=== PATIENT | female | born 1985 | race Caucasian/White ===

== ENCOUNTER → 2018-05-21 13:33 | Outpatient (CLI) | payer MEDICAID, SELFPAY ==
[2018-05-21 17:34] LABS: Chlamydia Trachomatis by PCR Negative (Negative); Neisserai gonorrhoeae by PCR Negative (Negative); Probe Check PASS; Sample Adequacy Control PASS; Specimen Processing Control PASS
== END ==
PROVIDERS: Visit Provider Obstetrics & Gynecology
DX: N91.2 Amenorrhea, unspecified (principal); Z11.3 Encounter for screening for infections with a predominantly sexual mode of transmission
CPT/HCPCS: 87491; 87591

== ENCOUNTER → 2018-06-11 14:38 | Outpatient (CLI) | payer MEDICAID, SELFPAY ==
[2018-06-11 16:28] LABS: Thyroid Stim Hormone (TSH) 0.93 uIU/mL (0.358-3.74)
[2018-06-11 16:34] LABS: Absolute Lymphocyte Count 2.33 X10^3/ul (0.83-4.51); Absolute Neutrophil Count 7.2 X10^3/uL (2.0-7.7); Basophil# 0.03 X10^3/uL; Basophil% 0.3 % (0-1); Eosinophil# 0.07 X10^3/uL; Eosinophils% 0.7 % (0-5); Hematocrit 41.5 % (37-47); Hemoglobin 13.7 g/dl (12.0-15.0); Lymphocyte # 2.33 X10^3/ul (4.0); Lymphocyte % 22.4 % (19-41); Mean Corpuscular Hgb 30.3 pg (27.0-32.0); Mean Corpuscular Volume 91.8 fL (81-99); Mean Platelet Vol. 10.2 fl (6.2-12.0); Monocyte# 0.78 X10^3/uL; Monocyte% 7.5 % (0-10); Platelet Count 269 K/mm3 (150-450); RBC Distribution Width CV 12.6 % (11.6-14.6); RBC Distribution Width SD 42.1 fl (35.1-43.9); Red Blood Count 4.52 M/mm3 (4.2-5.4); White Blood Count 10.4 K/mm3 (4.4-11.0)
[2018-06-11 16:51] LABS: POSITIVE COUNT NO; POSITIVE DIFFERENTIAL NO; POSITIVE MORPHOLOGY NO
[2018-06-11 17:09] LABS: Color, Urine Yellow (Yellow); Glucose, Dipstick Normal (Normal); Ketone-Dipstick Negative (Negative); Leukocyte Esterase-Dipstick Negative /ul (Negative); Nitrite-Dipstick Negative (Negative); Occult Blood-Urine Negative /ul (Negative); Protein-Dipstick 15 mg/dl (Negative); Specific Gravity, Urine 1.025 (1.002-1.030); Urine Bilirubin Dipstick Negative (Negative); Urine Clarity Sl. Cloudy (Clear); Urine Urobilinogen Normal (Normal)
[2018-06-11 19:01] LABS: Amphetamine Urine VISTA NEGATIVE (<1000 ng/mL); Barbiturate Urine VISTA NEGATIVE (< 200 ng/mL); Benzodiazepine Urine VISTA NEGATIVE (< 200 ng/mL); Cocaine Urine VISTA NEGATIVE (< 300 ng/mL); Ecstacy Urine VISTA NEGATIVE (< 500 ng/mL); Methadone Urine VISTA NEGATIVE (< 300 ng/mL); PCP Urine VISTA NEGATIVE (< 25 ng/mL); THC Urine VISTA NEGATIVE (< 50 ng/mL); Vista UDS pH Range 6
[2018-06-12 10:58] LABS: HIV - WCH Non-Reactive (Nonreactive); Rubella IgG 238.4 IU/mL
[2018-06-13 17:06] LABS: HEPATITIS B SURFACE AG Negative (Negative); Hep C Antibodies 0.1 s/co ratio (0.0-0.9)
[2018-06-14 04:35] LABS: Prenatal RPR NONREACTIVE (NONREACTIVE)
== END ==
PROVIDERS: Visit Provider Obstetrics & Gynecology
DX: Z34.81 Encounter for supervision of other normal pregnancy, first trimester (principal)
CPT/HCPCS: 36415; 80307; 81002; 84443; 85025; 86703; 86762; 86803; 87340

== ENCOUNTER → 2018-10-29 09:06 | Outpatient (CLI) | payer MEDICAID, SELFPAY ==
[2018-10-29 10:38] LABS: Mean Corp Hgb Conc 33.3 g/gl (32-36); Mean Corpuscular Hgb 31.3 pg (27.0-32.0); Mean Platelet Vol. 9.9 fl (6.2-12.0); Platelet Count 213 K/mm3 (150-450); RBC Distribution Width CV 12.9 % (11.6-14.6); RBC Distribution Width SD 43.2 fl (35.1-43.9); Red Blood Count 3.83 M/mm3 (4.2-5.4); White Blood Count 9.5 K/mm3 (4.4-11.0)
[2018-10-29 10:39] LABS: Scan Indicated on CBC? Y/N NO
[2018-10-29 10:44] LABS: Glucose Challenge Gest 1H 50g 150 mg/dL (70-140)
--- OUTSIDE RECORDS SUMMARY | 2018-12-15 07:39 | XMS RPT_ITS ---
:1985 Author Organization OHIP Care Team Providers Name Role Phone Nikia Cash Attending Unavailable Nikia Cash Attending Unavailable Nikia Cash Referring Unavailable Lan Benitez Primary Care Unavailable Nikia Cash Attending Unavailable Nikia Cash Attending Unavailable PROBLEMS PROBLEMS DATE TYPE CONDITION / CODE ATTENDING STATUS SOURCE 10/29/2018 Unknown Z34.83 - Encounter Nikia Cash Active [facility] other normal Hospital , third Repository trimester / Z34.83(ICD-10) 06/11/2018 Unknown Z34.81 - Encounter Nikia Cash Active [facility] of [facility] other normal Hospital , first Repository trimester / Z34.81(ICD-10) 05/21/2018 Unknown Z11.3 - Encounter Nikia Cash Active [place] for screening for Community infections with a Hospital predominantly Repository sexual mode of transmission / Z11.3(ICD-10) 05/21/2018 Unknown N91.2 - Amenorrhea, Nikia Cash Active [place] unspecified / Community N91.2(ICD-10) Hospital Repository PROCEDURES PROCEDURES No Procedure Records FoundRESULTS RESULTS GESTATIONAL GTT 3HR Collected: 11/04/2018 Status: F Source: CATHERINE 100G 9:57 AM [facility] [place], [place] REPOSITORY Order Comment: Is Patient Fasting? Y TYPE CODE TESTS RESULT OUT OF RANGE REFERENCE UNITS LAB L501.0650 <105 mg/dL Normal GLU 69 GTT-FASTING Result Comment: GLUCOSE TOLERANCE TEST FOR Reference Interval GESTATIONAL DIABETES Fasting <105 mg/dL 1 hour <190 mg/dl 2 hour <165 mg/dl 3 hour <145 mg/dl LAB L501.0660 <190 mg/dL Normal GLU GTT- 1HR 111 LAB L501.0670 <165 mg/dL Normal GLU GTT- 2HR 125 LAB L501.0680 <145 L Normal GLU GTT- 3HR 112 Performed By: #### L500.4710 #### [facility] [address] [facility] [place], [place], [id number] CBC-COMPLETE BLOOD CNT Collected: 10/29/2018 Status: F Source: CATHERINE NO DIFF 9:17 AM [facility] [place], [place] REPOSITORY TYPE CODE TESTS RESULT OUT OF RANGE REFERENCE UNITS LAB L100.1000 4.4-11.0 K/mm3 Normal WBC 9.5 LAB L100.1200 4.2-5.4 M/mm3 Low RBC 3.83 LAB L100.1300 12.0-15.0 g/dl Normal HGB 12.0 LAB L100.1400 37-47 % Low HCT 36.0 LAB L100.1500 81-99 fL Normal MCV 94.0 LAB L100.1600 27.0-32.0 pg Normal MCH 31.3 LAB L100.1700 32-36 g/gl Normal MCHC 33.3 LAB L100.1810 11.6-14.6 % Normal RDW CV 12.9 LAB L100.1820 35.1-43.9 fl Normal RDW SD 43.2 LAB L100.1900 150-450 K/mm3 Normal PLT 213 LAB L100.2000 6.2-12.0 fl Normal MPV 9.9 Performed By: #### L100.0500 #### [facility] [address] [place], [place], [id number] GLUCOSE CHALLENGE GEST Collected: 10/29/2018 Status: F Source: CATHERINE 1H 50G 9:17 AM [facility] [place], [place] REPOSITORY TYPE CODE TESTS RESULT OUT OF RANGE REFERENCE UNITS LAB L501.0250 70-140 mg/dL High GLU GEST 150 50g 1H Performed By: #### L501.0250 #### [facility] [address] [place], [address] URINE DRUG SCREEN Collected: 06/11/2018 Status: F Source: CATHERINE (VISTA) 2:40 PM [facility] [place], [place] REPOSITORY Order Comment: List of Drugs Taken or Suspected? UNK TYPE CODE TESTS RESULT OUT OF RANGE REFERENCE UNITS LAB L505.0075 TO BE Normal CONFIRMED Result Comment: CONFIRMATORY TESTING FOR ALL POSITIVE URINE DRUG SCREEN RESULTS WILL ONLY BE SENT OUT UPON PHYSICIAN ORDER. VISTA Urine Drug Screen methods provide only preliminary analytical test results. A more specific alternate chemical method must be used in order to obtain a confirmed analytical result. Gas chromatography/mass spectrometery (GC/MS) is the preferred confirmatory method. Clinical consideration and professional judgement should be applied to any drug of abuse test result, particularly when preliminary positive results are used. URINE TCA TESTING MUST BE ORDERED SEPARATELY. USE TEST MNEMONIC: [facility] LAB L505.5005 VISTA UDS PH 6 Normal LAB L505.5015 <1000 ng/mL AMPHETAMINES Normal NEGATIVE LAB L505.5025 < 200 ng/mL BARBITIURATES Normal NEGATIVE LAB L505.5035 < 200 ng/mL BENZODIAZIPINE Normal NEGATIVE LAB L505.5045 < 300 ng/mL COCAINE Normal NEGATIVE LAB L505.5055 < 500 ng/mL ECSTACY Normal NEGATIVE LAB L505.5065 < 300 ng/mL METHADONE Normal NEGATIVE LAB L505.5075 < 300 ng/mL OPIATES Normal NEGATIVE LAB L505.5085 < 25 ng/mL PCP Normal NEGATIVE LAB L505.5095 < 50 ng/mL THC Normal NEGATIVE Performed By: #### L505.5000 #### [facility] [address] [place], [place], [id number] THYROID STIM HORMONE Collected: 06/11/2018 Status: F Source: CATHERINE (TSH) 2:40 PM [facility] [place] [place] REPOSITORY TYPE CODE TESTS RESULT OUT OF RANGE REFERENCE UNITS LAB L501.9520 0.358-3.74 uIU/mL Normal TSH 0.93 Performed By: #### L501.9520 #### [facility] [address] [place], [address] CBC W/DIFF, AUTOMATED Collected: 06/11/2018 Status: F Source: CATHERINE 2:40 PM [facility] [place] [place] REPOSITORY TYPE CODE TESTS RESULT OUT OF RANGE REFERENCE UNITS LAB L100.1000 4.4-11.0 K/mm3 Normal WBC 10.4 LAB L100.1200 4.2-5.4 M/mm3 Normal RBC 4.52 LAB L100.1300 12.0-15.0 g/dl Normal HGB 13.7 LAB L100.1400 37-47 % Normal HCT 41.5 LAB L100.1500 81-99 fL Normal MCV 91.8 LAB L100.1600 27.0-32.0 pg Normal MCH 30.3 LAB L100.1700 32-36 g/gl Normal MCHC 33.0 LAB L100.1810 11.6-14.6 % Normal RDW CV 12.6 LAB L100.1820 35.1-43.9 fl Normal RDW SD 42.1 LAB L100.1900 150-450 K/mm3 Normal PLT 269 LAB L100.2000 6.2-12.0 fl Normal MPV 10.2 LAB L100.2100 47-70 % Normal NEUT% 69.0 LAB L100.2200 19-41 % Normal LY% 22.4 LAB L100.2300 0-10 % Normal MONO% 7.5 LAB L100.2400 0-5 % Normal EO% 0.7 LAB L100.2500 0-1 % Normal BASO% 0.3 LAB L100.2550 0.0-0.9 % Normal IM GRAN % 0.100 Result Comment: IG% - Immature Granulocytes (promyelocytes, myelocytes and metamyelocytes) > 1% indicates that a LEFT SHIFT is Present. LAB L100.2620 2.0-7.7 X10 3/uL Normal Absolute Neut 7.2 LAB L100.2720 0.83-4.51 X10 3/ul Normal Absolute Lymph 2.33 Performed By: #### L100.0100 #### [facility] [address] [place], [place], [address] URINALYSIS, ROUTINE Collected: 06/11/2018 Status: F Source: CATHERINE (DIPSTICK) 2:40 PM [facility] [place], [place] REPOSITORY Order Comment: How was Urine Obtained? Urine, Random TYPE CODE TESTS RESULT OUT OF RANGE REFERENCE UNITS LAB L400.3000 Yellow COLOR Normal Yellow LAB L400.3050 Clear Normal CLARITY Sl. Cloudy LAB L400.3200 Normal mg/dl Normal GLUCOSE, UR Normal LAB L400.3300 Negative mg/dL Normal BILIRUBIN URINE Negative LAB L400.3400 Negative mg/dl Normal KETONE UR Negative LAB L400.3465 1.002-1.030 Normal SP.GR. DIPSTX 1.025 LAB L400.3550 5.0 - 8.0 pH UR Normal 6.0 LAB L400.3600 Negative mg/dl High PROT 15 DIPSTX LAB L400.3700 Normal mg/dl Normal UROBILI Normal LAB L400.3750 Negative Normal NITRITE UR Negative LAB L400.3780 Negative /ul Normal OCCULT BLOOD-UR Negative LAB L400.3800 Negative /ul LEUK Normal ESTERASE Negative Performed By: #### L400.2010 #### [facility] [address] [place], [place], [address] T AND S-NO Collected: 06/11/2018 Status: F Source: CATHERINE CHARGE W/PNP 2:40 PM [facility] [place] [place] REPOSITORY Order Comment: Reason for Type AND Screen/Red Cells: Surgery? N TYPE CODE TESTS RESULT OUT OF RANGE REFERENCE UNITS LAB B10.0800 O Normal BLOOD POSITIVE TYPE GEL LAB B100.4050 Normal Ab SCREEN NEGATIVE GEL Performed By: #### B100.7550 #### [facility] [address] [facility]. [place], [place], [address] RUBELLA IGG Collected: 06/11/2018 Status: F Source: [place] 2:40 PM [facility] [place] [place] REPOSITORY TYPE CODE TESTS RESULT OUT OF RANGE REFERENCE UNITS LAB L509.4000 IU/mL Normal Rubella IgG 238.4 Result Comment: Antibody results Interpretation of Immune Status < 5 IU/ml Presumed Non-immune 5 - < 10 IU/ml Equivocal > or = 10 IU/ml Presumed Immune Performed By: #### L509.4000, L3890.6005 #### [facility] [address] [facility] [place], [address] HIV - W[facility] Collected: 06/11/2018 Status: F Source: CATHERINE 2:40 PM [facility] [place] [place] REPOSITORY TYPE CODE TESTS RESULT OUT OF RANGE REFERENCE UNITS LAB L3890.6005 Nonreactive Normal HIV - [facility] Non-Reactive Performed By: #### L509.4000, L3890.6005 #### [facility] [address] [place], [place], [id number] HEPATITIS B SURFACE Collected: 06/11/2018 Status: F Source: CATHERINE AG 2:40 PM [facility] [place] [place] REPOSITORY TYPE CODE TESTS RESULT OUT OF RANGE REFERENCE UNITS LAB L3100.0400 Negative Normal HB Negative SURF AG Result Comment: Performed at: [facility] Lab[address] [id number] Surgeon Assistant: Damien Pinon PhD, Phone: [phone] Performed By: #### L3100.0390, L3100.0625 #### [facility] (refer to report for specific site) refer to report for address and phone number HEPATITIS C ANTIBODIES Collected: 06/11/2018 Status: F Source: CATHERINE 2:40 PM [facility] [place] [place] REPOSITORY TYPE CODE TESTS RESULT OUT OF RANGE REFERENCE UNITS LAB L3100.0650 0.0-0.9 s/co ratio Normal HEP C AB 0.1 Result Comment: Negative: < 0.8 Indeterminate: 0.8 - 0.9 Positive: > 0.9 The CDC recommends that a positive HCV antibody result be followed up with a HCV Nucleic Acid Amplification test (153099). Performed By: #### L3100.0390, L3100.0625 #### [facility] (refer to report for specific site) refer to report for address and phone number RPR Collected: 06/11/2018 Status: F Source: CATHERINE 2:40 PM [facility] [place] [place] REPOSITORY TYPE CODE TESTS RESULT OUT OF REFERENCE UNITS RANGE LAB L700.5100 NONREACTIVE Normal RPR NONREACTIVE Performed By: #### L700.5100 #### [facility] [address] [place], [place], [address] CT/NG [facility] BY PCR Collected: 05/21/2018 Status: F Source: CATHERINE 10:00 AM [facility] [place] [place] REPOSITORY TYPE CODE TESTS RESULT OUT OF RANGE REFERENCE UNITS LAB L8200.2100 Negative Normal Chlam Negative Trac PCR LAB L8200.2200 Negative Normal NG by Negative PCR Performed By: #### L8200.2000 #### [facility] [address] [place], [address] ALLERGIES ALLERGIES DATE TYPE / CODE NAME / CODE REACTION SEVERITY SOURCE 12/01/2017 Drug codeine/F006 Vomiting Unknown [facility] Allergy/4160 433869(RXNOR Hospital 91664(SNOMED M) Repository CT) 12/01/2017 Drug hydrocodone/ Vomiting Unknown [facility] Allergy/4160 [id number](R Hospital 79200(SNOMED XNORM) Repository CT) 12/01/2017 Drug acetaminophe Vomiting Unknown [facility] Allergy/4160 n/[id number] Hospital 27978(SNOMED (RXNORM) Repository CT) ENCOUNTERS ENCOUNTERS ADMIT/DISCHARGE ACCOUNT ADMITTING ENCOUNTER LOCATION SOURCE NUMBER CLASS 11/04/2018 [id number] Ambulatory [facility] ing:LAB Repository 10/29/2018 [id number] Amb[place] [facility] ing:WOBLAB Repository 06/11/2018 [id number] Ambulatory [facility] [place] 8 [facility] ing:WOBLAB Repository 05/21/2018 [id number] Ambulatory [place] [facility] 1 [facility] ing:LABSPEC Repository PAYERS PAYERS ENCOUNTER GUARANTOR PAYER SUBSCRIBER SOURCE 11/04/2018 SAYRA Stauffer Primary FAM [place] [id number] [facility] BURNETTMANDOB: Replaced by [facility] Number: [id number] [id number] Repository [address]Aua: [phone]) Date:2018-10-29P O [phone] () [address]ATTN: [place] [address]BS: 11/04/2018 Secondary NOT GIVENUNK [facility] Insurance:SELF PAY [facility] Number: Effective Repository Date:2018-10-29 10/29/2018 Sayra Stauffer Primary FAMFIDELIA [id number] Insurance:CARESOURCEP KABIBIMANDOB: Replaced by [facility] Number: [id number] [id number] Repository [address]Qel: ([phone]) Date:2018-10-29P O [phone] (HP) [address]ATTN: [place] [address]KK: 10/29/2018 Secondary NOT GIVENUNK [place] Insurance:SELF PAY [facility] Number: Effective Repository Date:2018-10-29 06/11/2018 Sayra Stauffer Primary FAM [id number] Insurance:CARESOURCEP ZACHARYMANDOB: Replaced by [facility] Number: [id number] [place] [id number] Repository [address]Pbd: [phone]) Date:2018-06-11P O [phone] (HP) [address]ATTN: [place] [address]CK: 06/11/2018 Secondary NOT GIVENUNK [place] Insurance:SELF PAY [facility] Number: Effective Repository Date:2018-06-11 05/21/2018 Sayra Stauffer Primary FAM [id number] Insurance:CARESOURCEP ZACHARYMANDOB: Replaced by [facility] Number: [id number] [place], [place] [id number] Repository [address]Ubr: [phone] Date:2018-05-21P O [phone] (HP) [address]ATTN: [place] [address]KI: 05/21/2018 Secondary NOT GIVENUNK [place] Insurance:SELF PAY [facility] Number: Effective Repository Date:2018-05-21
== END ==
PROVIDERS: Visit Provider Obstetrics & Gynecology
DX: Z34.83 Encounter for supervision of other normal pregnancy, third trimester (principal)
CPT/HCPCS: 36415; 82950; 85027

== ENCOUNTER → 2018-11-04 09:38 | Outpatient (CLI) | payer MEDICAID, SELFPAY ==
[2017-12-01 10:25] VITALS: BMI 38.2
[2018-11-04 10:45] LABS: Glucose GTT-Gestation. Fasting 69 mg/dL (<105)
[2018-11-04 12:00] LABS: Glucose GTT-Gestational 1 Hr 111 mg/dL (<190)
[2018-11-04 12:45] LABS: Glucose GTT-Gestational 2 Hr 125 mg/dL (<165)
[2018-11-04 13:42] LABS: Glucose GTT-Gestational 3 Hr 112 L (<145)
--- OUTSIDE RECORDS SUMMARY | 2019-02-05 22:01 | XMS RPT_ITS ---
[...] Unknown Z11.3 - Encounter Nikia Cash [facility] for screening for Community infections with a Hospital predominantly Repository sexual mode of transmission / Z11.3(ICD-10) 05/21/2018 Unknown N91.2 - Amenorrhea, Nikia Cash [facility] unspecified / Community N91.2(ICD-10) Hospital Repository PROCEDURES PROCEDURES No Procedure Records FoundRESULTS RESULTS GESTATIONAL GTT 3HR Collected: 11/04/2018 Status: F Source: [place] 100G 9:57 AM [facility] [place] Order Comment: Is Patient Fasting? Y [...] 3HR 112 Performed By: #### L500.4710 #### [facility] [address] [facility] [place], [place], [id number] CBC-COMPLETE BLOOD CNT Collected: 10/29/2018 Status: F Source: CATHER[facility] NO DIFF 9:17 AM [facility] [facility] [place] TYPE CODE TESTS RESULT OUT OF [...] MPV 9.9 Performed By: #### L100.0500 #### [facility] [address] [place], [place], [id number] GLUCOSE CHALLENGE GEST Collected: 10/29/2018 Status: F Source: CATHERINE 1H 50G 9:17 AM [facility] [facility] [place] TYPE CODE TESTS RESULT OUT OF RANGE REFERENCE UNITS LAB L501.0250 70-140 mg/dL High GLU GEST 150 50g 1H Performed By: #### L501.0250 #### [facility] [address] [place], [address] URINE DRUG SCREEN Collected: 06/11/2018 Status: F Source: CATHERINE (VISTA) 2:40 PM [facility] [place] [place] Order Comment: List of Drugs Taken [...] Normal NEGATIVE Performed By: #### L505.5000 #### [facility] [address] [place], [place], [id number] THYROID STIM HORMONE Collected: 06/11/2018 Status: F Source: CATHERINE (TSH) 2:40 PM [facility] [place] TYPE CODE TESTS RESULT OUT OF RANGE REFERENCE UNITS LAB L501.9520 0.358-3.74 uIU/mL Normal TSH 0.93 Performed By: #### L501.9520 #### [facility] [address] [place], [address] CBC W/DIFF, AUTOMATED Collected: 06/11/2018 Status: F Source: CATHERINE 2:40 PM [facility] [place] TYPE CODE TESTS RESULT OUT OF [...] Lymph 2.33 Performed By: #### L100.0100 #### [facility] [address] [place], [place], [address] URINALYSIS, ROUTINE Collected: 06/11/2018 Status: F Source: CATHERINE (DIPSTICK) 2:40 PM [facility] [place] [place] Order Comment: How was Urine Obtained? [...] ESTERASE Negative Performed By: #### L400.2010 #### [facility] [address] [place], [place], [address] T AND S-NO Collected: 06/11/2018 Status: F Source: CATHERINE CHARGE W/PNP 2:40 PM [facility] [place] Order Comment: Reason for Type AND Screen/Red Cells: Surgery? N TYPE CODE TESTS RESULT OUT OF RANGE REFERENCE UNITS LAB B10.0800 O Normal BLOOD POSITIVE TYPE GEL LAB B100.4050 Normal Ab SCREEN NEGATIVE GEL Performed By: #### B100.7550 #### [facility] [address] [facility] [place], [place], [address] RUBELLA IGG Collected: 06/11/2018 Status: F Source: GATE 2:40 PM [facility] [place] TYPE CODE TESTS RESULT OUT OF RANGE REFERENCE UNITS LAB L509.4000 IU/mL Normal Rubella IgG 238.4 Result Comment: Antibody results Interpretation of Immune Status < 5 IU/ml Presumed Non-immune 5 - < 10 IU/ml Equivocal > or = 10 IU/ml Presumed Immune Performed By: #### L509.4000, L3890.6005 #### [facility] [address] [place], [address] HIV - [facility] Collected: 06/11/2018 Status: F Source: CATHERINE 2:40 PM [facility] [place] TYPE CODE TESTS RESULT OUT OF RANGE REFERENCE UNITS LAB L3890.6005 Nonreactive Normal HIV - [facility] Non-Reactive Performed By: #### L509.4000, L3890.6005 #### [facility] [address] [place], [place], [address] HEPATITIS B SURFACE Collected: 06/11/2018 Status: F Source: CATHERINE AG 2:40 PM [facility] [place] TYPE CODE TESTS RESULT OUT OF RANGE REFERENCE UNITS LAB L3100.0400 Negative Normal HB Negative SURF AG Result Comment: Performed at: [facility] [id number] [place] Table Assembler: Damien Pinon PhD, Phone: [phone] Performed By: #### L3100.0390, L3100.0625 #### [facility] (refer to report for specific site) refer to report for address and phone number HEPATITIS C ANTIBODIES Collected: 06/11/2018 Status: F Source: CATHERINE 2:40 PM [facility] [place] TYPE CODE TESTS RESULT OUT OF RANGE REFERENCE UNITS LAB L3100.0650 0.0-0.9 s/co ratio Normal HEP C AB 0.1 Result Comment: Negative: < 0.8 Indeterminate: 0.8 - 0.9 Positive: > 0.9 The CDC recommends that a positive HCV antibody result be followed up with a HCV Nucleic Acid Amplification test (627212). Performed By: #### L3100.0390, L3100.0625 #### [facility] (refer to report for specific site) refer to report for address and phone number RPR Collected: 06/11/2018 Status: F Source: CATHERINE 2:40 PM [facility] [place] TYPE CODE TESTS RESULT OUT OF REFERENCE UNITS RANGE LAB L700.5100 NONREACTIVE Normal RPR NONREACTIVE Performed By: #### L700.5100 #### [facility] [address] [place], [place], [address] CT/NG [facility] BY PCR Collected: 05/21/2018 Status: F Source: CATHERINE 10:00 AM [facility] [place] TYPE CODE TESTS RESULT OUT OF RANGE REFERENCE UNITS LAB L8200.2100 Negative Normal Chlam Negative Trac PCR LAB L8200.2200 Negative Normal NG by Negative PCR Performed By: #### L8200.2000 #### [facility] [address] [place], [address] ALLERGIES ALLERGIES DATE TYPE / CODE NAME / CODE REACTION SEVERITY SOURCE 12/01/2017 Drug codeine/F006 Vomiting Unknown [facility] Allergy/4160 299858(RXNOR Hospital 70082(SNOMED M) Repository CT) 12/01/2017 Drug hydrocodone/ Vomiting Unknown [facility] Allergy/4160 [id number](R Hospital 00123(SNOMED XNORM) Repository CT) 12/01/2017 Drug acetaminophe Vomiting Unknown [facility] Allergy/4160 n/[id number] Hospital 31418(SNOMED (RXNORM) Repository CT) ENCOUNTERS ENCOUNTERS ADMIT/DISCHARGE ACCOUNT ADMITTING ENCOUNTER LOCATION SOURCE NUMBER CLASS 11/04/2018 [id number] Ambulatory Catherine Catherine 5 [facility] ing:LAB Repository 10/29/2018 [id number] Ambulatory [facility] 8 [facility] ing:WOBLAB Repository 06/11/2018 [id number] Ambulatory [facility] 8 [facility] ing:WOBLAB Repository 05/21/2018 [id number] Ambulatory [facility] 1 [facility] ing:LABSPEC Repository PAYERS PAYERS ENCOUNTER GUARANTOR PAYER SUBSCRIBER SOURCE 11/04/2018 SAYRA Stauffer Primary FAM Oterooster [id number] Insurance:SLADESSM REHABMICHAEL BURNETTMANDOB: [facility] Number: [id number] [id number] Repository [address]Fkm: [phone]) Date:2018-10-29P O [phone] () [address]ATTN: [place] [address]GQ: 11/04/2018 Secondary NOT GIVENUNK Catherine Insurance:SELF PAY [facility] [place] Number: Effective Repository Date:2018-10-29 10/29/2018 Sayra Stauffer Primary FAMFIDELIA [id number] Insurance:CARESOURCEP KABIBIMANDOB: [facility] Number: [id number], [place] [id number] Repository [address]Zek: ([phone]) Date:2018-10-29P O [phone] (HP) [address]ATTN: [place] [phone]: 10/29/2018 Secondary NOT GIVENUNK [facility] Insurance:SELF PAY [facility] [place] Number: Effective Repository Date:2018-10-29 06/11/2018 Sayra Stauffer Primary FAM [id number] Insurance:CARESOURCEP ZACHARYMANDOB: [facility] Number: [id number], [place] [id number] Repository [address]Lac: [phone]) Date:2018-06-11P O [phone] (HP) [address]ATTN: [place] [address]XA: 06/11/2018 Secondary NOT GIVENUNK [facility] Insurance:SELF PAY [facility] [place] Number: Effective Repository Date:2018-06-11 05/21/2018 Sayra Stauffer Primary FAM [id number] Insurance:CARESOURCEP ZACHARYMANDOB: [facility] Number: [id number], [place] [id number] Repository [address]Wpl: [phone]) Date:2018-05-21P O [phone] (HP) [address]ATTN: [place] [address]LN: 05/21/2018 Secondary NOT GIVENUNK [facility] Insurance:SELF PAY [facility] [place] Number: Effective Repository Date:2018-05-21
== END ==
PROVIDERS: Family Provider Family Medicine; PCP Family Medicine; Referring Provider Obstetrics & Gynecology; Visit Provider Obstetrics & Gynecology
DX: O24.912 Unspecified diabetes mellitus in pregnancy, second trimester (principal); Z3A.00 Weeks of gestation of pregnancy not specified
CPT/HCPCS: 36415; 82951; 82952

== ENCOUNTER → 2018-12-31 10:37 | Outpatient (CLI) | payer MEDICAID, SELFPAY ==
[2017-12-01 10:25] VITALS: BMI 38.2
[2018-12-31 12:04] LABS: Hematocrit 35.1 % (37-47); Hemoglobin 11.5 g/dl (12.0-15.0); Mean Corp Hgb Conc 32.8 g/gl (32-36); Mean Corpuscular Hgb 30.7 pg (27.0-32.0); Mean Corpuscular Volume 93.6 fL (81-99); Mean Platelet Vol. 9.9 fl (6.2-12.0); Platelet Count 201 K/mm3 (150-450); RBC Distribution Width CV 13.5 % (11.6-14.6); RBC Distribution Width SD 44.9 fl (35.1-43.9); Red Blood Count 3.75 M/mm3 (4.2-5.4); Scan Indicated on CBC? Y/N NO; White Blood Count 8.8 K/mm3 (4.4-11.0)
[2018-12-31 12:21] LABS: ALB/GLOB Ratio 0.6 RATIO (0.9-2.4); AST(SGOT) 8 U/L (15-37); Alanine Aminotransfer ALT/SGPT 12 U/L (13-56); Albumin, Serum 2.7 g/dL (3.2-5.0); Alkaline Phosphatase 100 U/L (45-117); Anion Gap 9 (5-15); BUN 5 mg/dL (7-18); BUN/Creat Ratio 9.3 RATIO (10-20); Calcium,Total 8.1 mg/dL (8.5-10.1); Chloride 109 mmol/L (98-107); Creatinine, Serum 0.54 mg/dL (0.55-1.02); EST Glomerular Filtration Rate 139 mL/min (>60); Est Glom Filt Rate - Afr Amer 168 mL/min (>60); Globulin 4.3 g/dL (2.2-4.2); Glucose 128 mg/dL (74-106); Potassium 3.3 mmol/L (3.5-5.1); Sodium Level 139 mmol/L (136-145); Uric Acid 5.4 mg/dL (2.6-6.0)
== END ==
PROVIDERS: Visit Provider Obstetrics & Gynecology
DX: O13.3 Gestational [pregnancy-induced] hypertension without significant proteinuria, third trimester (principal); Z3A.00 Weeks of gestation of pregnancy not specified
CPT/HCPCS: 36415; 80053; 82570; 84156; 84550; 85027

== ENCOUNTER 2019-01-13 04:46 | Inpatient (IN) | payer MEDICAID, SELFPAY ==
[2019-01-13] VITALS (23 sets, daily range): BP systolic 110–128; BP diastolic 59–80; PULSE 71–88; RESP 14–18; TEMP 36.3–36.7; O2SAT 96–100; BMI 43.0
[2019-01-13] MEDS: Lactated Ringers 1,000 ML 999 ML IV (05:40)
[2019-01-13 06:07] LABS: Absolute Lymphocyte Count 1.86 X10^3/ul (0.83-4.51); Basophil# 0.03 X10^3/uL; Basophil% 0.4 % (0-1); Eosinophil# 0.08 X10^3/uL; Eosinophils% 0.9 % (0-5); Hematocrit 34.2 % (37-47); Hemoglobin 11.5 g/dl (12.0-15.0); Lymphocyte # 1.86 X10^3/ul (4.0); Lymphocyte % 21.8 % (19-41); Mean Corp Hgb Conc 33.6 g/gl (32-36); Mean Corpuscular Hgb 31.7 pg (27.0-32.0); Mean Corpuscular Volume 94.2 fL (81-99); Mean Platelet Vol. 9.8 fl (6.2-12.0); Monocyte# 0.57 X10^3/uL; Monocyte% 6.7 % (0-10); Neutrophil # 5.97 X10^3/uL (2.7-7.7); Platelet Count 188 K/mm3 (150-450); RBC Distribution Width CV 13.6 % (11.6-14.6); RBC Distribution Width SD 44.6 fl (35.1-43.9); Red Blood Count 3.63 M/mm3 (4.2-5.4); White Blood Count 8.5 K/mm3 (4.4-11.0)
[2019-01-13 06:13] LABS: POSITIVE COUNT NO; POSITIVE DIFFERENTIAL NO; POSITIVE MORPHOLOGY NO
[2019-01-13 06:33] LABS: International Normalized Ratio 1.1; Prothrombin Time (Protime)PT. 13.6 SECONDS (11.7-14.9)
[2019-01-13 06:52] LABS: Partial Thromboplast Time 30.8 Seconds (24.1-36.2)
[2019-01-13] MEDS: Lactated Ringers 1,000 ML 150 ML IV (07:01)
[2019-01-13] MEDS: Sodium Citrate/Citric Acid 30 ML UDC PO (07:02)
--- NOTE | 2019-01-13 07:22 | PCM.DCCSEC ---
Discharge Diet: No Restrictions Discharge Activity: May not drive while taking narcotic pain medications., May Shower, May Take a Tub Bath May resume sexual activity in: 4-6 weeks Lifting Restrictions: 20 pounds Additional Activity Instructions:: Nothing in the vagina for 4-6 weeks. You may return to work/school in 6 weeks. Additional Instructions: If you experience any of the following, contact your healthcare provider. Bleeding that soaks a pad every hour for 2 hours Fever 100.4 or higher Unrelieved incision or abdominal pain Swelling, redness, discharge or bleeding from your incision Problems urinating (including inability to urinate or burning while urinating). Visual changes Severe headache Flu-like symptoms Pain or redness in one of both of your breasts Pain, warmth, tenderness or swelling in your legs, especially the calf area Frequent nausea and vomiting Symptoms of depression or anxiety If you experience any of the following, call 911 or go to the nearest Emergency Room. Chest pain Problems breathing Seizure activity Partial or complete paralysis of a body part, slurred speech, weakness or drooping of the face, or a sudden inability to walk or hold your balance Allergies/Adverse Reactions: Allergies codeine Adverse Reaction (Verified 12/01/17 10:27) Vomiting hydrocodone [From Vicodin] Adverse Reaction (Verified 12/01/17 10:27) Vomiting Medications to take at Discharge Docusate Sodium [Colace] 100 mg PO BID #30 capsule 01/13/19 Naproxen [Naprosyn] 250 - 500 mg PO TID PRN PRN #30 tablet 01/13/19 Oxycodone [Oxyir] 5 mg PO Q6H PRN PRN 7 Days #20 tablet 01/13/19 Polyethylene Glycol 3350 [Miralax] 17 gm PO DAILY PRN #14 packet 01/13/19 Vits [Prenatabs FA ] 1 tab PO DAILY 01/13/19 The following prescriptions were given: Oxycodone [Oxyir] 5 mg PO Q6H PRN PRN 7 Days #20 tablet PRN Reason: Mod-Severe Pain (4-08/28) Naproxen [Naprosyn] 250 - 500 mg PO TID PRN PRN #30 tablet PRN Reason: Mild-Mod Pain (1-03/28) Polyethylene Glycol 3350 [Miralax] 17 gm PO DAILY PRN #14 packet PRN Reason: Constipation Docusate Sodium [Colace] 100 mg PO BID #30 capsule Follow-Up: Call to make an appointment with your doctor for an incision check in 1-2 weeks. You will also need a 6 week post- follow up appointment. Test results from this visit will be discussed in further detail at your follow-up appointment, if applicable. Please Follow Up With: Nikia Cash MD - [phone] When: Call to make an appointment for an incision check in 2 weeks. Primary Care Physician: Lan Benitez DO [Primary Care Provider] -
--- NOTE | 2019-01-13 07:26 | DCINST_ITS ---
Discharge Diet: No Restrictions Discharge Activity: May not drive while taking narcotic pain medications., May Shower, May Take a Tub Bath May resume sexual activity in: 4-6 weeks Lifting Restrictions: 20 pounds Additional Activity Instructions:: Nothing in the vagina for 4-6 weeks. You may return to work/school in 6 weeks. Additional Instructions: If you experience any of the following, contact your healthcare provider. * Bleeding that soaks a pad every hour for 2 hours * Fever 100.4 or higher * Unrelieved incision or abdominal pain * Swelling, redness, discharge or bleeding from your incision * Problems urinating (including inability to urinate or burning while urinating). * Visual changes * Severe headache * Flu-like symptoms * Pain or redness in one of both of your breasts * Pain, warmth, tenderness or swelling in your legs, especially the calf area * Frequent nausea and vomiting * Symptoms of depression or anxiety If you experience any of the following, call 911 or go to the nearest Emergency Room. * Chest pain * Problems breathing * Seizure activity * Partial or complete paralysis of a body part, slurred speech, weakness or drooping of the face, or a sudden inability to walk or hold your balance Allergies/Adverse Reactions: Allergies codeine Adverse Reaction (Verified 12/01/17 10:27) Vomiting hydrocodone [From Vicodin] Adverse Reaction (Verified 12/01/17 10:27) Vomiting Medications to take at Discharge Docusate Sodium [Colace] 100 mg PO BID #30 capsule 01/13/19 Naproxen [Naprosyn] 250 - 500 mg PO TID PRN PRN #30 tablet 01/13/19 Oxycodone [Oxyir] 5 mg PO Q6H PRN PRN 7 Days #20 tablet 01/13/19 Polyethylene Glycol 3350 [Miralax] 17 gm PO DAILY PRN #14 packet 01/13/19 Vits [Prenatabs FA ] 1 tab PO DAILY 01/13/19 The following prescriptions were given: Oxycodone [Oxyir] 5 mg PO Q6H PRN PRN 7 Days #20 tablet PRN Reason: Mod-Severe Pain (4-1010) Naproxen [Naprosyn] 250 - 500 mg PO TID PRN PRN #30 tablet PRN Reason: Mild-Mod Pain (1-510) Polyethylene Glycol 3350 [Miralax] 17 gm PO DAILY PRN #14 packet PRN Reason: Constipation Docusate Sodium [Colace] 100 mg PO BID #30 capsule Follow-Up: Call to make an appointment with your doctor for an incision check in 1-2 weeks. You will also need a 6 week post- follow up appointment. Test results from this visit will be discussed in further detail at your follow- up appointment, if applicable. Please Follow Up With: Nikia Cash MD - [phone] When: Call to make an appointment for an incision check in 2 weeks. Primary Care Physician: Lan Benitez DO [Primary Care Provider] -
[2019-01-13] MEDS: Ondansetron 4 MG/2 ML Vial IV (07:36)
[2019-01-13] MEDS: Oxytocin 30 units/NS 500 ml 30 UNITS/500 ML IV.SOLN 167 UNITS IV (07:44)
--- NOTE | 2019-01-13 08:00 | FALS_PTH ---
PATIENT: FAM BIRD LOC: [facility] U#:[id number] AGE/SX: 33/F ROOM: WP006 RE01/13/[address]: Dr. Nikia Cash MD : 1985 BED: 1 DIS: 01/16/2019 SPEC #: [id number] RECD: 01/13/19 08:57 STATUS: KRYSTINA MEG #: [id number] THEO: 01/13/19 08:[address]: Nikia Cash DEPT: SURGICAL PATHOLOGY RECD BY: Indra Foster ENTERED: 01/13/19 14:43 SP TYPE: FALL TUBES OTHR DR: Dr. Lan Benitez, Tissues: Fallopian tube Procedures: Surgery Specimen Level II HEADER OPERATION: Tubal ligation PRE-OP DIAGNOSIS: Desired sterilization TISSUE SUBMITTED: Fallopian tubes MICROSCOPIC DIAGNOSIS Bilateral fallopian tubes, tubal ligation: Completely transected segments of bilateral fallopian tubes, no pathologic diagnosis. SJ:lesli 01/14/19 MICROSCOPIC DESCRIPTION Slides are reviewed. GROSS DESCRIPTION Received is one container labeled with the patient's name and designated bilateral fallopian tubes, stitch left fallopian. The specimen consists of two tubular pieces of pink soft tissue with the left tube identified with a suture and inked black. The left tube measures 0.6 cm in length and 0.5 cm in diameter. The right tube measures 0.5 cm in length and 0.5 cm in diameter. The entire specimen is submitted in one cassette. / TUTU:lesli 01/13/19 TC:4 CPT: 47023 x2
[2019-01-13] MEDS: Ketorolac 30 MG/ML Syringe IV ×3 (08:19→19:52)
--- NOTE | 2019-01-13 08:30 | PCM.OPRPT ---
Delivery Classification: Scheduled Final KELVIN: 01/19/19 Gestational age: 39 Weeks and 1 Days Indications: 39 1/7 wk prior C section deliveries, planned repeat C section and bilateral partial salpingectomy Indications for : Repeat Elective Description of Procedure: SURGEON: Nikia Cash MD ANESTHESIA: Myriam Dubois CRNA Spinal INTERNAL AUDITOR: REX Ledesma EBL : 800 cc Complications: None. Drain: downs, clear yellow urine Fluids replacement LR. Findings: Llamas viable male VTX Clear fluid, CAN x one. Normal ovaries. Fallopian tubes scarring noted along entire tube bilaterally, with close approximation to ovaries. B tubal segments removed AND Filshie clip applied to proximal portions of fallopian tube bilaterally. Minimal pelvic and intraabdominal adhesions otherwise, with filmy adhesions between bladder and lower uterine segment. PATH: Routine cord blood for typing collected. Routine cord gases were sent. Narrative account: After the risks, benefits and alternatives of the procedure were reviewed with the patient, informed consent was obtained. The patient was taken to the Operating room with an IV running, and placed in a seated position on the operating table for placement of the spinal. Once the spinal had been administered, she was briefly frog-legged for Downs catheter placement, and then repositioned to dorsal supine position with leftward displacement of the uterus, and prepped and draped in the usual sterile fashion WITH A CLEAR DRAPE instead of the Betadine impregnated drape. Once the spinal was deemed adequate, a Pfannenstiel skin incision was created using the knife (through the prior skin incision scar). The incision was carried down to the rectus fascia using the knife. The fascia was nicked in the midline. The fascial incision was extended bilaterally using curved Geiger scissors. The superior aspect of the fascial incision was grasped with Naun clamps and tented up and the underlying rectus abdominal muscles were dissected free. In a similar manner, the inferior aspect of the facial incision was grasped with Naun clamps tented up and the underlying rectus abdominal muscles were dissected free. The rectus abdominis muscles were in the midline and the peritoneum was identified and entered by blunt dissection high in the incision. The peritoneum was stretched laterally and a bladder blade was inserted. A bladder flap was created along the lower uterine segment with Metzenbaum scissors . The uterine incision was then created using Metzenbaum scissors. The operators fingertips were used to extend the uterine incision by blunt dissection in a caudad- cephalad orientation . Clear fluid was noted at amniotomy. The vertex was then delivered atraumatically through the incision. The OP and nares were bulb suctioned on the abdomen. A nuchal cord times one was reduced at delivery. The shoulders delivered easily. The cord was clamped x two and cut. And the infant was handed off to the nurse awaiting delivery after briefly showing him to his parents. The baby had a spontaneous, vigorous cry. The placenta was then delivered. The uterus was exteriorized and cleared of clots and debris . The uterine incision was repaired with 1 Vicryl in a running locked fashion. A second imbricating layer was then placed, using 1 Monocryl in running nonlocked fashion. Bovie cautery was used to treat any bleeding areas . Excellent hemostasis was noted. At this point the right fallopian tube was grasped at a relatively avascular midportion. Adhesions were noted: The fallopian tube was closely adherent to the ovary and surrounding tissue so a very small portion was tented up with a Arcadia clamp. A window was made in the mesosalpinx. The proximal and distal fallopian tube was ligated at the mesosalpinx window, and a knuckle of the fallopian tube was tented up. A second tie was placed inferior to both ties already in place and a small segment of the R fallopian tube was excised and sent to pathology. Bovie cautery was used for hemostasis at the remaining tubal stumps. The L fallopian tube was also adherent to adjacent structures. A similar procedure was employed to excise a small portion of the L fallopian tube. There was some bleeding noted and the L fallopian tube had to be oversewn along with several 1 vicryl placed at the L uterine fundus/cornual region for hemostasis. Due to the very small portion excised on both tubes, a Filshie clip was also applied at both fallopian tubes. At this point the uterus was returned to the abdominal cavity. The gutters were cleared of clots and debris and the incision at the uterus was inspected. The tubal ligation was inspected. Excellent hemostasis was noted. Audi was applied along the Left partial salpingectomy, where the area had been overswen also for continued hemostasis. Excellent hemostasis was noted at both fallopian tubes. Bilateral partial salpingectomies. The peritoneal edges and rectus abdominis muscles were reapproximated in the midline with interrupted vertical mattress sutures of 1 Vicryl. Excellent hemostasis was noted at the subfascial space Audi was dusted over this layer. The fascia was closed in a running nonlocked fashion with a Stratofix. The Subcutaneous fatty tissue was Bovie cauterized as needed for hemostasis. Audi was liberally dusted at this layer to prevent seroma formation. This layer was then reapproximated in a two layer closure of running 3-0 Vicryl to eliminate space. The skin edges were closed in a Subcuticular stitch of 4-0 Monocryl. The incision was cleansed. Cavilon, Steristrips, and Mepilex dressing were applied to the skin . The patient was then transferred to the recovery room bed in stable condition after tolerating the procedure well. Sponge, lap, needle and instrument counts correct times two. Medications given preop and intraoperatively included: Gentamicin and Clindamycin were given contractor buyer to the operating room. The patient also received Pitocin given IV after cord clamp, and Toradol 30 mg IV times one. For a complete listing of medications given preop and intraoperatively, please see the anesthesia record. Amniotic Membrane Rupture Type: Artificial Amniotic Fluid Description: Clear Placenta Disposition: [facility] Specimen(s) sent to pathology: fallopian tubes bialteral segment Drain: Downs to straight drain Cord Entanglement: Around neck x 1, loose Cord Vessel Description: 3 Vessels Esitmated Blood Loss (ml): 800 Infant Gender: Male (1 minute): 8 (5 minute): 9 Delayed cord clamping: No Pre-op Antibiotic Given: Clindamycin 600mg IV x1 and Gentamicin 1.5mg/kg IV x1 Pt instructed on risks of surgery: Bleeding, Infection, Permanency, Failure Rate of 1 to 2% Complications: None - Admit VTE Documentation VTE Present on Admission: No VTE Mechan Device Prophylaxis: SCD's VTE Pharm Prophylaxis ordered?: No
[2019-01-13 08:55] LABS: Pathology Specimen OB SEE PATHOLOGY REPORT
[2019-01-13] MEDS: Lactated Ringers 1,000 ML 100 ML IV ×2 (08:55→18:23)
--- NOTE | 2019-01-13 12:51 | NURSING ---
lab called regarding lab specimen. Pt very difficult stick x2 and was able to get small blood sample for CBC. Called to make sure they had enough blood for test. They will call back if not enough blood.
[2019-01-13 12:57] LABS: Hematocrit 37.4 % (37-47); Hemoglobin 12.2 g/dl (12.0-15.0); Mean Corp Hgb Conc 32.6 g/gl (32-36); Mean Corpuscular Hgb 30.4 pg (27.0-32.0); Mean Corpuscular Volume 93.3 fL (81-99); Mean Platelet Vol. 9.9 fl (6.2-12.0); Platelet Count 200 K/mm3 (150-450); RBC Distribution Width CV 13.7 % (11.6-14.6); RBC Distribution Width SD 46.8 fl (35.1-43.9); Red Blood Count 4.01 M/mm3 (4.2-5.4); White Blood Count 18.6 K/mm3 (4.4-11.0)
[2019-01-13 13:11] LABS: Scan Indicated on CBC? Y/N NO
[2019-01-13] MEDS: Prenatal Vits Tablet 1 TABLET PO (14:26)
[2019-01-14 00:17] VITALS: BP 100/50; PULSE 83; RESP 17; TEMP 36.4; O2SAT 97
[2019-01-14] MEDS: Ketorolac 30 MG/ML Syringe IV ×4 (02:28→20:47)
[2019-01-14] MEDS: Senna/Docusate Sodium 1 Tablet PO (02:29)
[2019-01-14 02:31] VITALS: PULSE 79; RESP 16; O2SAT 96
[2019-01-14 03:47] VITALS: BP 101/43; PULSE 77; RESP 17; TEMP 36.1; O2SAT 97
[2019-01-14 05:00] VITALS: PULSE 83; RESP 16; O2SAT 97
[2019-01-14] MEDS: 0.9% Saline Lock 10 ML Syringe IV ×2 (05:20→20:47)
[2019-01-14] MEDS: Acetaminophen 500 MG Tablet 1000 MG PO (06:16)
[2019-01-14 06:18] LABS: Hematocrit 33.5 % (37-47); Hemoglobin 10.9 g/dl (12.0-15.0); Mean Corp Hgb Conc 32.5 g/gl (32-36); Mean Corpuscular Hgb 30.8 pg (27.0-32.0); Mean Corpuscular Volume 94.6 fL (81-99); Mean Platelet Vol. 9.9 fl (6.2-12.0); Platelet Count 197 K/mm3 (150-450); RBC Distribution Width CV 13.7 % (11.6-14.6); RBC Distribution Width SD 44.4 fl (35.1-43.9); Red Blood Count 3.54 M/mm3 (4.2-5.4); White Blood Count 10.8 K/mm3 (4.4-11.0)
[2019-01-14 06:20] VITALS: PULSE 81; RESP 18; O2SAT 95
[2019-01-14 06:22] LABS: Scan Indicated on CBC? Y/N NO
--- NOTE | 2019-01-14 07:39 | PCM.PN.OB ---
Subjective: POD#1 Repeat C/S and BTO, both BPS and bilateral filshie clips Doing OK. Finney removed. Baby under bili lights as Elvira positive. Pain control adequate. Nursing. Normally gets a fever with milk coming in. Has been taking calcium supplement to see if this will prevent. IV to S/L already. - Physical Exam General: Alert, Oriented x3, Cooperative, No apparent distress HEENT: Atraumatic Neck: Supple Abdomen: Soft - Fundus firm minimally tender c/w postop status, 2 cm inf to umbilicus Skin: Incision - silver mepilex in place, CDI. Neurological: Cranial nerves II-XII grossly intact Psych/Mental Status: Normal Affect Vital Signs Temp Pulse Resp BP Pulse Ox 97.0 F L 81 18 101/43 L 95 01/14/19 03:47 01/14/19 06:20 01/14/19 06:20 01/14/19 03:47 01/14/19 06:20 Oxygen Delivery Method Room Air Weight: 121 kg Body Mass Index (BMI) 43.0 Intake and Output for Last 24 Hours 02//01/13/19 01/14/19 23:59 23:59 23:59 Intake Total 4609 / 4609 1114 / 1114 Output Total 1825 / 1825 800 / 800 Balance 2784 / 2784 314 / 314 Laboratory Tests Past 24 Hrs //01/13/19 01/14/19 05:40 12:30 05:45 WBC 18.6 H 10.8 RBC 4.01 L 3.54 L Hgb 12.2 10.9 L Hct 37.4 33.5 L MCV 93.3 94.6 MCH 30.4 30.8 MCHC 32.6 32.5 RDW 13.7 13.7 RDW Differential 46.8 H 44.4 H Plt Count 200 197 MPV 9.9 9.9 Blood Type O POSITIVE Antibody Screen NEGATIVE Medical Necessity - Tobacco Use Smoking Status: Never smoker Assessment/Plan POD#1 Repeat C/S and bilateral partial salpingectomy, with Filshie clip placement also. Finney removed for voiding trial. IV to S/L for continued Toradol. Inc diet and activity as tolerated. Begin rosibel meds. resume calcium supplement. Continue routine postop care.
[2019-01-14] MEDS: oxyCODONE 5 MG Tablet PO ×3 (11:46→21:34)
[2019-01-14] MEDS: Prenatal Vits Tablet 1 TABLET PO (11:46)
[2019-01-14] MEDS: Calcium (Elemental) 500 MG Tablet PO (15:34)
[2019-01-14 20:50] VITALS: BP 134/80; PULSE 77; RESP 18; TEMP 36.6; O2SAT 96
[2019-01-15] MEDS: 0.9% Saline Lock 10 ML Syringe IV (02:56)
[2019-01-15] MEDS: Ketorolac 30 MG/ML Syringe IV (02:56)
[2019-01-15 02:57] VITALS: BP 138/81; PULSE 76; RESP 16; TEMP 36.6
[2019-01-15] MEDS: oxyCODONE 5 MG Tablet PO ×4 (05:58→23:44)
--- NOTE | 2019-01-15 07:30 | PCM.PN.OB ---
Subjective: POD#2 Repeat C/S and BTO, bilateral partial salpingectomy Doing well. NO concerns voiced. Baby has been under bili lights for Elvira positive. States bilirubin level has stabilized and recheck planned today. Hoping to go home toady if baby is released. Minimal itching last night at R side of incision, but only at the tape. No all over itching as she had with last / prior C section (presumably due to Betadine impregnated drape) Nursing, minimal pain which has been well controlled. - Physical Exam General: Alert, Oriented x3, Cooperative, No apparent distress HEENT: Atraumatic Neck: Supple Skin: Incision - Mepilex dressing, CDI. no shadow drainage noted. Neurological: Cranial nerves II-XII grossly intact Psych/Mental Status: Normal Affect Vital Signs Temp Pulse Resp BP Pulse Ox 97.9 F 76 16 138/81 H 96 / 02:57 01/15/19 02:57 01/15/19 02:57 01/15/19 02:57 01/14/19 20:50 Oxygen Delivery Method Room Air Weight: 121 kg Body Mass Index (BMI) 43.0 Intake and Output for Last 24 Hours 02//01/14/01/15/19 23:59 23:59 23:59 Intake Total 4609 / 4609 1114 / 1114 Output Total 1825 / 1825 800 / 800 Balance 2784 / 2784 314 / 314 Medical Necessity - Tobacco Use Smoking Status: Never smoker Assessment/Plan POD#2 Repeat C/S and bilateral partial salpingectomy, with Filshie clip placement also. Stable postop. AFEB. Continue routine postop care. Dischg home later today if baby is released.
--- NOTE | 2019-01-15 07:35 | PCM.DC.SUM ---
Discharge Date and Diagnosis Date of Admission: 01/13/19 - 39 1/7 wk for repeat C/S and BPS Date of Discharge: 01/15/19 - S/P repeat C/S and BPS, BTO with filshie clips also Hospital Course and Treatment Operations: - - Repeat C section and surgical sterilization, bilateral partial salpingectomy and filshie clips Summary of Care Provided: The patient is a 33 year old female at 39 1/7 wk presents for repeat C section and bilateral tubal ligation. All C section deliveries. Admitted for repeat C/S and BPS. Surgical procedure uncomplicated. Llamas viable male VTX presentation. Adhesions noted adjacent to both fallopian tubes: 5 mm segment of each tube excised. Filshie clips also applied. Increased bleeding at the L tubal ligation , which required oversewing and Audi. Postop course uneventful. Hgb stable at 10.9 g/dl postop. Exam benign with incision CDI. AFEB VSS. Baby Elvira positive and is under bilirubin lights. Requests dischg home on POD#2, if baby is released. RTO in 2 wk for postop checkup, and in 6 wk for pp check, - Physical Exam Vital Signs Temp Pulse Resp BP Pulse Ox 97.9 F 76 16 138/81 H 96 01/15/19 02:57 01/15/19 02:57 01/15/19 02:57 01/15/19 02:57 01/14/19 20:50 Oxygen Delivery Method Room Air Weight: 121 kg Body Mass Index (BMI) 43.0 Intake and Output for Last 24 Hours 01/13/19 01/14/19 01/15/19 23:59 23:59 23:59 Intake Total 4609 / 4609 1114 / 1114 Output Total 1825 / 1825 800 / 800 Balance 2784 / 2784 314 / 314 Discharge Diet: No Restrictions Discharge Activity: May not drive while taking narcotic pain medications., May Shower, May Take a Tub Bath May resume sexual activity in: 4-6 weeks Additional Activity Instructions:: Nothing in the vagina for 4-6 weeks. You may return to work/school in 6 weeks. Home Medications: Medications to take at Discharge Docusate Sodium [Colace] 100 mg PO BID #30 capsule 01/13/19 Naproxen [Naprosyn] 250 - 500 mg PO TID PRN PRN #30 tablet 01/13/19 Oxycodone [Oxyir] 5 mg PO Q6H PRN PRN 7 Days #20 tablet 01/13/19 Polyethylene Glycol 3350 [Miralax] 17 gm PO DAILY PRN #14 packet 01/13/19 Vits [Prenatabs FA ] 1 tab PO DAILY 01/13/19 Following Prescrptions Were Given to Patient: Oxycodone [Oxyir] 5 mg PO Q6H PRN PRN 7 Days #20 tablet PRN Reason: Mod-Severe Pain (4-08/28) Naproxen [Naprosyn] 250 - 500 mg PO TID PRN PRN #30 tablet PRN Reason: Mild-Mod Pain (1-03/28) Polyethylene Glycol 3350 [Miralax] 17 gm PO DAILY PRN #14 packet PRN Reason: Constipation Docusate Sodium [Colace] 100 mg PO BID #30 capsule Primary Care Physician: Lan Benitez DO [Primary Care Provider] - Please Follow Up With: Nikia Cash MD - [phone] When: Call to make an appointment for an incision check in 2 weeks. Medical Necessity - Tobacco Use Smoking Status: Never smoker Meaningful Use Info Meaningful Use Diagnoses (Choose all that apply): None applicable
[2019-01-15] MEDS: Calcium (Elemental) 500 MG Tablet PO (08:06)
[2019-01-15] MEDS: Naproxen 250 MG Tablet PO (12:02)
[2019-01-15] MEDS: Prenatal Vits Tablet 1 TABLET PO (12:02)
[2019-01-15] MEDS: Senna/Docusate Sodium 1 Tablet PO (17:42)
[2019-01-15 17:58] VITALS: BP 134/74; PULSE 84; RESP 16; TEMP 36.7; O2SAT 99
[2019-01-15 20:10] VITALS: BP 138/76; PULSE 68; RESP 18; TEMP 36.8; O2SAT 95
[2019-01-16 01:48] VITALS: BP 115/71; PULSE 68; RESP 18; TEMP 36.5
--- NOTE | 2019-01-16 08:23 | PCM.PN.OB ---
Subjective: POD#3 Repeat C/S and BTO/BPS Stable postop. Doing well. No fevers, breast feeding. On calcium supplement. Daughter in school palay tonight, lead part and baby is not likely to go home 2/2 bilirubin levels. Still under lights reviewed option for hotel status. Objective: expressing concerns for family situation. Baby under lights, daughter's play tonight - Physical Exam General: Alert, Oriented x3, Cooperative, No apparent distress HEENT: Atraumatic Neck: Supple Abdomen: Soft - fundus firm NT 2 cm inferior to umbilicus Skin: Incision - Mepilex CDI. Psych/Mental Status: Normal Affect Vital Signs Temp Pulse Resp BP Pulse Ox 97.7 F L 68 18 115/71 95 01/16/19 01:48 01/16/19 01:48 01/16/19 01:48 01/16/19 01:48 01/15/19 20:10 Oxygen Delivery Method Room Air Weight: 121 kg Body Mass Index (BMI) 43.0 Intake and Output for Last 24 Hours 02/01/15/19 01/16/19 23:59 23:59 23:59 Intake Total 1114 / 1114 Output Total 800 / 800 Balance 314 / 314 Medical Necessity - Tobacco Use Smoking Status: Never smoker Assessment/Plan POD#3 Repeat C/S and bilateral partial salpingectomy, with Filshie clip placement also. Stable postop. Continue care. Dischg home later today, to hotel status to allow patient to see daughter's school play.
[2019-01-16 08:26] VITALS: BP 139/82; PULSE 80; RESP 16; TEMP 37; O2SAT 100
[2019-01-16] MEDS: Calcium (Elemental) 500 MG Tablet PO (08:31)
[2019-01-16] MEDS: Prenatal Vits Tablet 1 TABLET PO (08:31)
[2019-01-16] MEDS: Naproxen 250 MG Tablet PO (08:31)
[2019-01-16 08:45] VITALS: BP 119/69; PULSE 67; RESP 16; TEMP 36.7; O2SAT 97
[2019-01-16 12:00] VITALS: BP 139/82; PULSE 80; RESP 16; TEMP 37; O2SAT 100
[2019-01-16] MEDS: oxyCODONE 5 MG Tablet PO ×2 (12:46→17:00)
[2019-01-16 14:00] VITALS: BP 139/82; PULSE 80; RESP 16; TEMP 37; O2SAT 100
[2019-01-16 17:02] VITALS: BP 132/79; PULSE 61; RESP 16; TEMP 36.7; O2SAT 99
== END 2019-01-16 17:00 | disposition home or self-care (01) | DRG 540 ==
PROVIDERS: Admitting Provider Obstetrics & Gynecology; Family Provider Family Medicine; PCP Family Medicine; Referring Provider Obstetrics & Gynecology; Visit Provider Obstetrics & Gynecology
PROC: 10D00Z1 Extraction of Products of Conception, Low, Open Approach (ICD-10-PCS; CPT 59514; principal; 2019-01-13 07:15)
DX: O34.211 Maternal care for low transverse scar from previous cesarean delivery (principal); O69.81X0 Labor and delivery complicated by cord around neck, without compression, not applicable or unspecified; Z3A.39 39 weeks gestation of pregnancy; Z37.0 Single live birth; Z30.2 Encounter for sterilization
CPT/HCPCS: 85025; 85027; 85610; 85730; 86850; 86900; 88302; 88307; 99218; J7120; A4216; G0378; J2405

== ENCOUNTER → 2020-06-24 12:34 | Outpatient (CLI) | payer MEDICAID, SELFPAY ==
[2020-06-24 08:47] VITALS: BMI 43.0
[2020-06-28 09:45] LABS: HPV APTIMA, High Risk Negative (Negative)
== END ==
PROVIDERS: PCP Family Medicine; Referring Provider Nurse Practitioner Women's Health; Visit Provider Nurse Practitioner Women's Health
DX: Z12.4 Encounter for screening for malignant neoplasm of cervix (principal)
CPT/HCPCS: 87624; 88175; G0145

== ENCOUNTER → 2020-06-29 15:33 | Outpatient (CLI) | payer MEDICAID, SELFPAY ==
[2020-06-24 08:47] VITALS: BMI 43.0
--- NOTE | 2020-06-29 15:35 | US_ITS ---
STUDY: ULTRASOUND OF THE FEMALE PELVIS - COMPLETE REASON FOR EXAM: Female, 35 years old. HEAVY MENSES LMP: 06/27/2020 TECHNIQUE: Transabdominal and Transvaginal TECHNICAL QUALITY: Adequate. COMPARISON: None. FINDINGS: The uterus is anteverted and is in a midline position. The uterus measures 8.6 x 5.3 x 3.6 cm. There are cervical nabothian cysts. The endometrium measures 4 mm in thickness, and is hyperechoic. There is no demonstrated endometrial mass. There is no demonstrated myometrial mass. Uterus is heterogeneous in echogenicity. No fibroid is identified. I.U.D. - The patient does not have an I.U.D. The right ovary is visualized. The right ovary measures 3.3 x 1.9 x 1.6 cm. There is no right ovarian cyst or ovarian mass. There is no visualized right adnexal mass or complex lesion. There is normal arterial and normal venous vascularity. The left ovary is visualized. The left ovary measures 2.7 x 2.2 x 2.0 cm. There is no left ovarian cyst or ovarian mass. There is no visualized left adnexal mass or complex lesion. There is normal arterial and normal venous vascularity. There is no fluid in the cul-de-sac. The pre void volume of the bladder was 516 ml. Polycystic ovary disease: No. US/Transvaginal Non- IMPRESSION: The uterus is heterogeneous in echogenicity. No discrete fibroid is identified. The ovaries appear normal. There are cervical nabothian cysts. There is no fluid in the cul-de-sac. Electronically Signed: Neo Suarez MD at 21:39 EDT , Service support ,
--- NOTE | 2020-06-29 15:35 | US_ITS ---
STUDY: ULTRASOUND OF THE FEMALE PELVIS - COMPLETE REASON FOR EXAM: Female, 35 years old. HEAVY MENSES LMP: 06/27/2020 TECHNIQUE: Transabdominal and Transvaginal TECHNICAL QUALITY: Adequate. COMPARISON: None. FINDINGS: The uterus is anteverted and is in a midline position. The uterus measures 8.6 x 5.3 x 3.6 cm. There are cervical nabothian cysts. The endometrium measures 4 mm in thickness, and is hyperechoic. There is no demonstrated endometrial mass. There is no demonstrated myometrial mass. Uterus is heterogeneous in echogenicity. No fibroid is identified. I.U.D. - The patient does not have an I.U.D. The right ovary is visualized. The right ovary measures 3.3 x 1.9 x 1.6 cm. There is no right ovarian cyst or ovarian mass. There is no visualized right adnexal mass or complex lesion. There is normal arterial and normal venous vascularity. The left ovary is visualized. The left ovary measures 2.7 x 2.2 x 2.0 cm. There is no left ovarian cyst or ovarian mass. There is no visualized left adnexal mass or complex lesion. There is normal arterial and normal venous vascularity. There is no fluid in the cul-de-sac. The pre void volume of the bladder was 516 ml. Polycystic ovary disease: No. US/Pelvic (Non ) IMPRESSION: The uterus is heterogeneous in echogenicity. No discrete fibroid is identified. The ovaries appear normal. There are cervical nabothian cysts. There is no fluid in the cul-de-sac. Electronically Signed: Neo Suarez MD at 21:39 EDT , Service support ,
== END ==
PROVIDERS: PCP Family Medicine; Referring Provider Nurse Practitioner Women's Health; Visit Provider Nurse Practitioner Women's Health
DX: N92.1 Excessive and frequent menstruation with irregular cycle (principal)
CPT/HCPCS: 76830; 76856

== ENCOUNTER → 2020-07-08 08:12 | Outpatient (CLI) | payer MEDICAID, SELFPAY ==
[2020-06-24 08:47] VITALS: BMI 43.0
--- NOTE | 2020-07-08 | EMB_PTH ---
PATIENT: FAM BIRD LOC: [facility] U#:[id number] AGE/SX: 40/F ROOM: RE07/08/[address]: CLIVE Francisco : 1985 BED: DIS: SPEC #: [id number] RECD: 07/08/20 12:00 STATUS: KRYSTINA MEG #: [id number] THEO: 07/08/20 00:[address]: Tonia Baires NP DEPT: SURGICAL PATHOLOGY RECD BY: Milan Paul ENTERED: 07/08/20 14:02 SP TYPE: ENDOM BX/C VIRIDIANA DR: DO Dr. Nita Mazariegos MD Tissues: Endometrium, NOS Procedures: Surgery Specimen Level IV HEADER OPERATION: Endometrial biopsy PRE-OP DIAGNOSIS: Abnormal uterine bleeding TISSUE SUBMITTED: Endometrial biopsy MICROSCOPIC DIAGNOSIS Endometrial biopsy: Proliferative endometrium with focal cystic changes. See comment. TUTU:lesli 07/09/20 COMMENT Clinical correlation and appropriate follow up are necessary. MICROSCOPIC DESCRIPTION Slides are reviewed. GROSS DESCRIPTION Received is one container labeled with the patient's name and not further designated. The specimen consists of multiple irregular fragments of light rai soft tissue that in aggregate measure 1.5 x 0.5 x 0.1 cm. The specimen is totally submitted in one cassette. / SJ:lesli 07/08/20 TC:5 CPT: 20718
--- NOTE | 2020-07-08 08:12 | BI_ITS ---
MAMMOGRAPHY - BILATERAL SCREENING 3-D TOMOSYNTHESIS REASON FOR EXAM: Female, 35 years old. Annual screening mammogram. PERTINENT HISTORY: Family history of breast cancer in mother at age 56.. TECHNIQUE: 2-D mammograms and 3-D Tomosynthesis of the breast (s) were performed. CAD was performed. COMPARISON: 06/20/2017 FINDINGS: The breast composition is almost entirely fat. Scattered benign calcifications are seen. No dense spiculated masses or suspicious microcalcifications are identified. No architectural distortion is identified. There is no skin thickening or retraction. There has been no significant change since the prior study. BI/SCREEN MAMM (CAD) W/KAI BILAT IMPRESSION: No mammographic signs of malignancy. Routine yearly mammograms recommended. ASSESSMENT CATEGORY: BIRADS Category 1: Negative. A letter regarding these results will be sent to the patient by the facility within 30 days. FOLLOW UP RECOMMENDATION: Yearly follow up mammogram recommended. (A) Approximately 10% of breast cancers are not detected by mammography. A normal mammogram should not delay biopsy of a clinically suspicious abnormality. Electronically Signed: Wil Griffiths MD at 17:41 EDT , Service support ,
[2020-07-08 10:38] LABS: Absolute Neutrophil Count 3.5 X10^3/uL (2.0-7.7); Basophil# 0.07 X10^3/uL; Basophil% 1.1 % (0-1); Eosinophils% 1.5 % (0-5); Hemoglobin 13.6 g/dL (12.0-15.0); Lymphocyte % 36.3 % (19-41); Mean Corp Hgb Conc 33.2 g/dL (32-36); Mean Corpuscular Hgb 30.4 pg (27.0-32.0); Mean Corpuscular Volume 91.7 fL (81-99); Mean Platelet Vol. 9.7 fl (6.2-12.0); Monocyte% 7.6 % (0-10); NRBC Flagged by Analyzer 0 % (0-5); Neutrophil # 3.52 X10^3/uL (2.7-7.7); Neutrophil % 53.2 % (47-70); Platelet Count 260 K/mm3 (150-450); RBC Distribution Width CV 12.1 % (11.6-14.6); RBC Distribution Width SD 40.4 fl (35.1-43.9); Red Blood Count 4.47 M/mm3 (4.2-5.4); White Blood Count 6.6 K/mm3 (4.4-11.0)
== END ==
PROVIDERS: Obstetrics & Gynecology; PCP Family Medicine; Referring Provider Nurse Practitioner Women's Health; Visit Provider Nurse Practitioner Women's Health
DX: Z12.31 Encounter for screening mammogram for malignant neoplasm of breast (principal)
CPT/HCPCS: 36415; 77063; 77067; 84443; 85025; 88305

== ENCOUNTER 2020-08-03 05:24 | Day surgery (SDC) | payer MEDICAID, SELFPAY ==
[2020-07-08 09:34] VITALS: BMI 37.9
[2020-07-27 14:49] LABS: Hematocrit 39.6 % (37-47); Hemoglobin 13.3 g/dL (12.0-15.0); Mean Corp Hgb Conc 33.6 g/dL (32-36); Mean Corpuscular Hgb 30.9 pg (27.0-32.0); Mean Corpuscular Volume 92.1 fL (81-99); Mean Platelet Vol. 9.6 fl (6.2-12.0); Platelet Count 238 K/mm3 (150-450); RBC Distribution Width SD 40.6 fl (35.1-43.9)
[2020-07-27 15:21] LABS: Magnesium 2.2 mg/dL (1.6-2.6)
--- NOTE | 2020-08-02 05:41 | HP.PCM_ITS ---
- Problem List (1) Family history of breast cancer in mother Status: Acute (2) Migraine without aura Status: Acute Qualifiers: (3) Abnormal uterine bleeding Status: Chronic Comment: failed OCP and IUD in past. omaira FLORES cysto. GP to assist. 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 Required: No Is patient in pain?: No Allergies codeine Adverse Reaction (Verified 07/08/20 09:34) Vomiting hydrocodone [From Vicodin] Adverse Reaction (Verified 07/08/20 09:34) Vomiting Medications doxylamine succinate 25 mg tablet 25 mg PO QHS PRN 06/24/20 [History Confirmed 07/08/20] acetaminophen 325 mg capsule 325 mg PO ONCE PRN 07/08/20 [History Confirmed 07/08/20] Post menopausal: No Patient : No : No PFSH PFSH Surgical History History of (Acute) History of eye surgery (Acute) History of knee surgery (Acute) History of tonsillectomy (Acute) History of tubal ligation (Acute) Family History Mother Breast cancer Uterine cancer Lung cancer Ovarian cancer genetic susceptibility Dysplasia of cervix Diabetes Multiple sclerosis Father Hypertension Grandmother Diabetes Hypertension Heart disease Grandfather Diabetes Social History (Updated 07/08/20 @ 10:[address] iNta Hunter MD) household members: spouse, children housing: house number of children: 5 current occupational status: employed current occupation: [employer] history of recent travel: No sexually active: Yes Smoking Status: Never smoker alcohol intake: never substance use type: does not use what type of physical activity do you participate in: walking seatbelt use: always do you feel safe at home: Yes additional social history: - Quinten Pregancy History 5 Elective abortions Hx Para 5 Spontaneous abortions Hx # Term Pregnancies Ectopic pregnancies Hx # Pregnancies Multiple births # of living children 5 Past Pregnancies Del. Date Name GA/Weeks Outcome Route Bth Weight Infant Gen Labor Lgth Anesthesia Del Locatn Provider FOB Unknown 2007 Garry Unknown 2009 Quentjose cruz Unknown 2010 Sharita Unknown 2012 Gloria Unknown 2018 Kike [facility] surgery consult: Details: FAM BIRD is a 35 year old who presents for heavy, painful menses. she denies lower pelvic pain. she has failed OCP in the past and had severe migraines. she has also an iud in the past that also didn't help. Periods are irregular and can be every 14-30 days lasting 7-10 days Female Reproductive History Cycle Length: <21 (very irregular ) Bleeding Duration: 9 Questions: Metorrhagia: Yes, Sexually active: Yes, Dyspareunia: No, PCB: No Menopausal Symptoms: No hot flashes, No night sweats, No weight change, No mood changes, No difficulty concentrating, No sleep problems, No change in libido ROS Const Constitutional: Denies fatigue, fever(s), headache(s), increased appetite, poor appetite, night sweats, weight gain or weight loss Eyes Eyes: Reports system reviewed and no additional complaints, except as docu ENT ENT: Reports system reviewed and no additional complaints, except as docu Cardio Card: Reports system reviewed and no additional complaints, except as docu Resp Resp: Reports system reviewed and no additional complaints, except as docu GI GI: Reports as per HPI; denies abdominal pain, constipation, nausea or vomiting : Reports as per HPI, heavy periods and metrorrhagia; denies difficulty urinating, painful urination, blood in urine, hot flashes, nipple discharge, pelvic pain, urinary frequency, urinary incontinence, urinary hesitancy, urinary urgency, vaginal discharge, vaginal dryness, vaginal odor, vaginal itching or other Musc Musc: Reports system reviewed and no additional complaints, except as docu Skin Skin/Breast: Reports system reviewed and no additional complaints, except as docu; denies nipple discharge Neuro Neuro: Reports system reviewed and no additional complaints, except as docu Psych Psych: Reports system reviewed and no additional complaints, except as docu; denies change in sex drive or difficulty concentrating Exam Const General: cooperative, healthy appearing, comfortable, well developed Orientation: alert HENND Head: normal to inspection Eyes General: appearance normal, both eyes and all related structures Neck Neck: normal visual inspection, no lymphadenopathy Neck mass: No Thyroid: thyroid normal Chest Chest palpation & inspection: normal inspection of the chest Resp Effort & Inspection: normal respiratory effort Auscultation: clear to auscultation bilaterally Cardio Rate: regular rate Rhythm: regular rhythm Heart Sounds: S1 normal, S2 normal, no murmurs GI Inspection: normal to inspection, non-distended Palpation: soft, no hepatosplenomegaly, no guarding, nontender External Female Exam: normal external appearance, normal appearance of the urethra Urethra: normal appearance of the urethra Speculum Exam - Vagina: normal appearance of the vagina, normal vaginal discharge, no lesions Speculum Exam - Cervix: normal appearance of the cervix, nontender Bimanual Exam- Vagina & Uterus: normal bimanual exam, uterine size normal, uterine shape normal, No cervical tenderness, uterine mobility normal, uterine consistency normal, uterus non-tender Bimanual Exam- Adnexa, other: normal adnexae, no adnexal masses Musc Thoracic/Lumbar Spine: thoracic and lumbar spine normal to inspection Skin General: no rashes or lesions noted Neuro General: alert, awake Speech: speech normal Extrem General: normal to inspection Psych Appearance: grossly normal Assessment & Plan Problems 1. Abnormal uterine bleeding N93.9 failed OCP and IUD in past. plan [facility] cysto. GP to assist. Plan After discussing the patient's diagnosis and treatment plan options, patient wishes to proceed with surgical management. I have discussed with the patient the risks, benefits, and alternatives of the procedure which include but are not limited to risks of anesthesia, bleeding, infection, possible damage to bowel, bladder, or surrounding vasculature which could lead to additional surgery to evaluate any complications. Patient agrees to procedure and wishes to proceed. ACOG/uptodate references given for additional information regarding procedure. Coding Level of Care Code Off vis,est,level 4 Diagnoses Abnormal uterine bleeding N93.9
[2020-08-03] VITALS (15 sets, daily range): BP systolic 117–150; BP diastolic 67–95; PULSE 66–92; RESP 14–16; TEMP 36.2–36.8; O2SAT 94–100; BMI 39.9; BMI 38.7
[2020-08-03 06:20] LABS: Bedside Glucose 90 mg/dL (70-110)
[2020-08-03] MEDS: dexAMETHasone 10 MG/ML Vial 8 MG IV (06:31)
[2020-08-03] MEDS: Phenazopyridine 95 MG Tablet 190 MG PO (06:33)
[2020-08-03] MEDS: Acetaminophen 500 MG Tablet 1000 MG PO ×4 (06:34→23:46)
[2020-08-03] MEDS: Scopolamine 1mg/72hr Patch 1 PATCH TRANSDERM. (06:35)
[2020-08-03] MEDS: Celecoxib 200 MG Capsule 400 MG PO (06:35)
[2020-08-03] MEDS: Gabapentin 600 MG Tablet PO (06:36)
[2020-08-03] MEDS: Enoxaparin 40 MG/0.4 ML Syringe SC (06:36)
[2020-08-03] MEDS: Lactated Ringers 1,000 ML 40 ML IV (07:10)
--- NOTE | 2020-08-03 07:30 | HYST_PTH ---
PATIENT: FAM BIRD LOC: [facility] [place] U#:[id number] AGE/SX: 35/F ROOM: RE08/03/[address]: Dr. Nita Hunter MD : 1985 BED: DIS: 08/04/2020 SPEC #: [id number] RECD: 08/03/20 15:30 STATUS: KRYSTINA MEG #: [id number] THEO: 08/03/20 07:[address]: Nita Hunter DEPT: SURGICAL PATHOLOGY RECD BY: Milan Paul ENTERED: 08/04/20 09:41 SP TYPE: HYSTERECT OTHR DR: Dr. Lan Benitez DO Tissues: Uterus, NOS Procedures: Surgery Specimen Level V HEADER OPERATION: Laparoscopic-assisted vaginal hysterectomy, salpingectomy PRE-OP DIAGNOSIS: Abnormal uterine bleeding N93.9 TISSUE SUBMITTED: Uterus, cervix and bilateral fallopian tubes MICROSCOPIC DIAGNOSIS Uterus, hysterectomy: Cervix - mild chronic inflammation. Endometrium - proliferative endometrium Myometrium - focal superficial adenomyosis. Right and left fallopian tubes - no pathologic change. AM:lesli 08/05/20 MICROSCOPIC DESCRIPTION Slides are reviewed. GROSS DESCRIPTION Received in fixative is one container labeled with the patient's name and designated uterus, cervix and bilateral fallopian tubes. The specimen consists of a hysterectomy specimen consisting of uterus with cervix and attached bilateral fallopian tubes. The uterus with cervix weighs 80 gm and measures 8 x 7 x 4 cm. The serosal surface is rai, glistening. The ectocervical mucosa is unremarkable. The external os is slit-like in contour. The endocervical canal measures up to 3.5 cm in length and the endocervical mucosa is rai, glistening and unremarkable. The triangular endometrial cavity measures 4 cm in length and 3 cm in width. A focal hemorrhagic area is noted at the level of internal ox. The endometrium is rai, glistening without any mass lesion and measures 0.1 cm in thickness. Sections of the uterine wall do not reveal any mass lesion and it measures up to 2.5 cm in thickness. A Filshie clip is noted at the left cornu which appears intact. The right fallopian tube measures 5.5 cm in length and up to 0.5 cm in diameter. The fimbrial end is identified. A Filshie clip is noted close to proximal portion which appears intact. Sections reveal unremarkable cut surfaces. The left fallopian tube measures 5.5 cm in length and 0.5 cm in diameter. It is similar appearance to right. Senior Engineering Tech sections are submitted in eight cassettes as follows: 1 - anterior cervix, 2 - posterior cervix, 3 & 4 - anterior uterine wall, 5 & 6 - posterior uterine wall, 7 - right fallopian tube, 8 - left fallopian tube. / TUTU:lesli 08/04/20 TC:5 CPT: 20377
[2020-08-03] MEDS: Cefazolin 2 GM in 0.9% Normal Saline 100 ML IV (07:42)
--- NOTE | 2020-08-03 07:44 | OP.PCM_ITS ---
Problem List (1) Family history of breast cancer in mother Status: Acute (2) Migraine without aura Status: Acute Qualifiers: (3) Abnormal uterine bleeding Status: Chronic Comment: failed OCP and IUD in past. plan [facility] cysto. GP to assist. Report of Operation Date of Procedure: 08/03/20 Pre-Operative Diagnosis: aub pelvic pain previous cs x 5 Post-Operative Diagnosis: same plus severe vesicouterine adhesions and umbilical adhesions Surgery/Procedure Performed:: lavh bs cysto signifciant adhesiolysis personnel research scientist: Renetta Angel Type of Anesthesia:: General Special Medications: natty Specimen's removed: uterus tubes Drains: downs Estimated Blood Loss (mL): 250 Fluids Replaced: crystalloid Description of Procedure: Patient received preoperative antibiotics and SCDs were on preoperatively. Patient was taken back to the operating room and placed in the dorsal lithotomy position. General anesthesia was induced and patient was prepped and draped in normal sterile fashion. Uterine manipulator was placed inside the uterus and Downs catheter placed in the bladder. The umbilicus was grasped with towel clamps and an intraumbilical incision was made after injecting with quarter percent Marcaine and a Veress needle entered into the abdomen confirmed to be intra-abdominal with a low opening pressure. Abdomen was insufflated with CO2 gas and the Veress needle removed and the 5 mm trocar was placed under direct visualization without complication. Right and left lower quadrants were transilluminated and injected with quarter percent Marcaine and 5 mm ports placed under direct visualization. Umbilical adhesions were taken down by transecting the omental adhesions using the LigaSure device. Pelvis was well visualized see operative findings for additional information. Bilateral fallopian tubes were identified and transected with the LigaSure device across the mesosalpinx to the level of the utero-ovarian ligament which was also transected with the LigaSure device. The broad ligament was opened up by transecting the round ligament bilaterally and skeletonizing the uterine vessels bilaterally and creating a bladder flap using the LigaSure device. This took extensive dissection lasting approximately 60 minutes including hydrodissection alternating from the right and left sides as well as changing to a 30 degree scope and using monopolar cautery and sharp dissection. Additional blunt dissection was performed and hydrodissection to take in the bladder pillars and the bladder was folded up over onto the previous uterine scar and increased vasculature was seen suggestive of pelvic congestion and adenomyosis. Once the vesicouterine space was finally entered the bladder was continually dissected inferiorly away from the operative field and the uterine vessels transected and the parametrium dissected away from the uterine corpus. The uterine arteries were transected bilaterally with good visualization of the bladder and the ureters were seen to be inferior lateral to the operative area. Attention was then paid to the vaginal portion of the procedure and the cervix was grasped with Shubham clamps and circumferentially injected with dilute vasopressin. A circumferential incision was made and the vaginal mucosa was mobilized off posteriorly and the cul-de-sac entered into sharply and a longneck speculum placed. The anterior cul-de-sac was then identified and entered into sharply. The uterosacral ligaments were clamped cut and suture ligated with 0 Monocryl bilaterally followed by the cardinal ligaments which were clamped cut and suture ligated bilaterally with 0 Monocryl. The uterus serially descended and was removed without difficulty with minimal morcellation. Pelvic sidewall pedicles were checked and noted to have excellent hemostasis. The vaginal mucosa was reapproximated incorporating the posterior peritoneum. This was reapproximated using 0 Vicryl [id number] sutures. Excellent hemostasis was noted. The cystoscopy was then performed and bilateral ureteral strong spray was noted and the bladder was noted to have no abnormality or lesions seen. Downs catheter was replaced and then attention paid to the abdominal portion of the procedure again. The pelvis and cul-de-sac was well visualized and no significant active bleeding noted but some raw areas were seen on the peritoneum and therefore Natty was applied. Pressure was taken down and the areas visualized and noted of excellent hemostasis. All ports were removed under direct visualization without complication and the abdomen was desufflated of air. The instruments removed from the abdomen and the vagina vaginal sweep was negative. Port sites on the abdomen were closed with 4-0 Monocryl interrupted sutures and Steri's and windows were applied. She was awoken and taken recovery in stable condition. Grafts/Implants Used: none - Complications none - Admit VTE Documentation VTE Present on Admission: No VTE Mechan Device Prophylaxis: SCD's VTE Pharm Prophylaxis ordered?: Yes Multi Select Codes - Urinary/Genital Urinary/Genital CPT Codes: 53932 Cystoscopy, 94521 LAVH+BS/O <250gr Uterus - extensive adhesiolysis lasting 60 minutes see operative note
--- NOTE | 2020-08-03 07:59 | PCM.DC.VHY ---
<Nita Hunter - Last Filed: 08/03/20 07:59> Discharge Diet: No Restrictions Discharge Activity: Return to Normal Activity, May Not Drive, May Shower May resume sexual activity in: 6-8 weeks Call your doctor if your incision/area has: Continuous Slow Oozing, Sudden Increased Bleeding, Increased Pain/ Swelling, Increased Redness, Foul Smelling Discharge Call your doctor if you observe: Fever of 101 or Higher, Inability to urinate, Inability to have a bowel movement, Using more than one pad per hour Allergies/Adverse Reactions: Allergies codeine Adverse Reaction (Verified 08/03/20 05:59) Vomiting hydrocodone [From Vicodin] Adverse Reaction (Verified 08/03/20 05:59) Vomiting Medications to take at Discharge Doxylamine Succinate [Unisom Sleep Aid] 25 mg PO QHS 07/22/20 Naproxen [Naprosyn] 250 - 500 mg PO Q8H PRN PRN #30 tab 08/03/20 Oxycodone HCl/Acetaminophen [Percocet 5-325] 1 - 2 tab PO Q6H PRN PRN 7 Days #15 tab 08/03/20 The following prescriptions were given: Naproxen [Naprosyn] 250 - 500 mg PO Q8H PRN PRN #30 tab PRN Reason: MILD PAIN Transmission Status: Received by [facility] Oxycodone HCl/Acetaminophen [Percocet 5-325] 1 - 2 tab PO Q6H PRN PRN 7 Days #15 tab PRN Reason: Pain Transmission Status: Received by [facility] Primary Care Physician: Lan Benitez DO [Primary Care Provider] - Test Results: Test results from this visit will be discussed in further detail at your follow-up appointment, if applicable. Please Follow Up With: Nita Hunter MD - [phone] <Tonia Baires NP - Last Filed: 08/04/20 07:55> Test Results: Test results from this visit will be discussed in further detail at your follow-up appointment, if applicable.
[2020-08-03] MEDS: Lubricating Jelly 60 GM Tube 30 GM TOPICAL (08:10)
[2020-08-03] MEDS: Vasopressin 20 UNITS/ML Vial (09:00)
[2020-08-03] MEDS: Bupivacaine 0.25% 30 ML Vial (09:30)
[2020-08-03] MEDS: Lactated Ringers 1,000 ML 70 ML IV ×2 (09:30→16:31)
[2020-08-03] MEDS: Ketorolac 30 MG/ML Syringe IV ×3 (10:56→23:46)
--- NOTE | 2020-08-03 12:20 | NURSING ---
THIS NURSE ACCIDENTLY SNIPPED BLOOD BAND OFF BECAUSE IT WAS UNDER THE PTS OTHER BAND. TAPED IT BACK ON AND NOTIFIED NIKKI IN BLOOD BANK. OK TO USE SINCE IT NEVER LEFT PT
[2020-08-03] MEDS: Docusate Sodium 100 MG Capsule PO ×2 (12:56→21:37)
[2020-08-03] MEDS: oxyCODONE 5 MG Tablet PO ×3 (12:56→21:37)
[2020-08-03] MEDS: 0.9% Saline Lock 10 ML Syringe IV (16:37)
[2020-08-04] MEDS: oxyCODONE 5 MG Tablet PO ×2 (03:30→09:21)
[2020-08-04 05:09] LABS: Hematocrit 30.8 % (37-47); Hemoglobin 10.1 g/dL (12.0-15.0); Mean Corp Hgb Conc 32.8 g/dL (32-36); Mean Corpuscular Volume 91.4 fL (81-99); Mean Platelet Vol. 9.8 fl (6.2-12.0); Platelet Count 275 K/mm3 (150-450); RBC Distribution Width CV 12.1 % (11.6-14.6); RBC Distribution Width SD 40.8 fl (35.1-43.9); Red Blood Count 3.37 M/mm3 (4.2-5.4)
[2020-08-04] MEDS: Ketorolac 30 MG/ML Syringe IV ×2 (05:48→12:01)
[2020-08-04 06:00] VITALS: BP 128/71; PULSE 85; RESP 16; TEMP 36.8; O2SAT 95
[2020-08-04] MEDS: Acetaminophen 500 MG Tablet 1000 MG PO (06:39)
--- NOTE | 2020-08-04 07:52 | PCM.PN.OB ---
Subjective: DINH BS cysto POD #1 Doing well. No SOB, CP, nausea. Ambulating and taking PO well Pain well controlled. Eager for discharge. - Physical Exam Vitals/I&O's: Vital Signs Temp Pulse Resp BP Pulse Ox 98.3 F 85 16 128/71 H 95 08/04/20 06:00 08/04/20 06:00 08/04/20 06:00 08/04/20 06:00 08/04/20 06:00 Oxygen Flow Rate (L/min) 6 Oxygen Delivery Method Room Air Weight: 239 lb 10.279 oz Body Mass Index (BMI) 38.7 Intake and Output for Last 24 Hours 08/02/20 08/03/20 08/04/20 23:59 23:59 23:59 Intake Total 2707.67 / 2707.67 1000 / 1000 Output Total 3075 / 3075 550 / 550 Balance -367.33 / -367.33 450 / 450 General: Alert, Oriented x3 Abdomen: Soft, Non-Distended, - - Dressing dry and intact, minimal bruising. Old dry drainage, minimal. Laboratory Results 08/04/20 04:42: WBC 18.0 H, RBC 3.37 L, Hgb 10.1 L, Hct 30.8 L, MCV 91.4, MCH 30.0, MCHC 32.8, RDW Std Deviation 40.8, RDW Coeff of Gi 12.1, Plt Count 275, MPV 9.8 Current Medications Acetaminophen (Tylenol) 1,000 mg PO Q6 [facility] Last Admin: 08/04/20 06:39 Dose: 1,000 mg Documented by: Docusate Sodium (Colace) 100 mg PO BID [facility] Last Admin: 08/03/20 21:37 Dose: 100 mg Documented by: Enoxaparin Sodium (Lovenox) 40 mg SC DAILY [facility] Ketorolac Tromethamine (Toradol (Bkc)) 30 mg IV Q6H [facility] Stop: 08/04/20 17:01 Last Admin: 08/04/20 05:48 Dose: 30 mg Documented by: Magnesium Chloride (Mag64) 128 mg PO DAILY PRN PRN PRN Reason: Constipation Nutritional Formula (Lactose Free) (Ensure Enlive) 120 ml PO TIDCM [facility] Last Admin: 08/03/20 16:31 Dose: Not Given Documented by: Ondansetron HCl (Zofran Odt) 4 mg PO Q6H PRN PRN PRN Reason: NAUSEA Oxycodone HCl (Oxyir) 5 - 10 mg PO Q4H PRN PRN PRN Reason: Pain Score 4-10/10 Last Admin: 08/04/20 03:30 Dose: 10 mg Documented by: Sodium Chloride () 10 - 40 ml IV UD PRN PRN Reason: SALINE FLUSH Last Admin: 08/03/20 16:37 Dose: 10 ml Documented by: Medical Necessity - Tobacco Use Smoking Status: Never smoker Tobacco Use: Non-smoker Assessment/Plan All Active Problems (Last Reviewed 07/08/20 @ 09:35 by Mary Gaines) H/O cystoscopy (Resolved ~08/03/20) H/O bilateral salpingectomy (Resolved ~08/03/20) History of LAVH (Resolved ~08/03/20) Migraine without aura (Acute) Family history of breast cancer in mother (Acute) POD #1 Routine care Remove [facility] Discharge home today.
[2020-08-04] MEDS: Enoxaparin 40 MG/0.4 ML Syringe SC (09:23)
[2020-08-04] MEDS: Docusate Sodium 100 MG Capsule PO (09:23)
[2020-08-04 10:34] VITALS: O2SAT 97
[2020-08-04 12:45] VITALS: BP 122/80; PULSE 71; RESP 16; TEMP 36.8; O2SAT 100
--- NOTE | 2020-08-04 14:16 | PHA.DC.MC ---
Pharmacy Service has performed discharge medication reconciliation and counseling for this patient. 1. NAPROXEN 250-500MG PO Q8H PRN MILD PAIN 2. OXYCODONE/ACETAMINOPHEN 5/325MG 1-2T PO Q6H PRN PAIN X 7 DAYS The patient's discharge medication list was reviewed for discrepancies and discrepancies were resolved. Home Medications Doxylamine Succinate [Unisom Sleep Aid] 25 mg PO QHS 07/22/20 Naproxen [Naprosyn] 250 - 500 mg PO Q8H PRN PRN #30 tab 08/03/20 Oxycodone HCl/Acetaminophen [Percocet 5-325] 1 - 2 tab PO Q6H PRN PRN 7 Days #15 tab 08/03/20 The patient was counseled on the following discharge medications and changes in medications for homegoing were reviewed. The Reason for Use, instructions for use, and potential side effects were reviewed for all new medications. The patient's questions regarding all of their medications were answered. The patient was able to verbally demonstrate an understanding of their discharge medications. The patient demonstrated some understanding but would benefit from further education and reinforcement. Patient counseled by pharmacy graduate intern, Miladys.
== END 2020-08-04 13:00 | disposition home or self-care (01) ==
LOC: SDC 05:25 → AC 05:25 → MS3 10:36
PROVIDERS: Anesthesiology; PCP Family Medicine; Referring Provider Obstetrics & Gynecology; Visit Provider Obstetrics & Gynecology
PROC: 0UT9FZZ Resection of Uterus, Via Natural or Artificial Opening With Percutaneous Endoscopic Assistance (ICD-10-PCS; CPT 58552; principal; 2020-08-03 07:05)
DX: N93.9 Abnormal uterine and vaginal bleeding, unspecified (principal); Z11.59 Encounter for screening for other viral diseases; N80.0 Endometriosis of uterus
CPT/HCPCS: 00940; 58552; 36415; 82962; 83735; 85027; 86850; 86900; 86901; 87635; 88307; 99251; C9803; J7120; A4216; G0463; J2405; U0003

== ENCOUNTER → 2020-08-19 12:32 | Outpatient (CLI) | payer MEDICAID, SELFPAY ==
[2020-08-19 10:45] VITALS: BMI 38.7
== END ==
PROVIDERS: PCP Family Medicine; Referring Provider Obstetrics & Gynecology; Visit Provider Obstetrics & Gynecology
DX: R30.0 Dysuria (principal)
CPT/HCPCS: 87086; 87088

== ENCOUNTER → 2021-08-11 13:10 | Outpatient (CLI) | payer SELFPAY ==
--- NOTE | 2021-08-11 13:17 | BI_ITS ---
MAMMOGRAPHY - BILATERAL SCREENING REASON FOR EXAM: Female, 36 years old. Routine annual screening examination. PERTINENT HISTORY: Mother with breast cancer. Aunt with breast cancer. TECHNIQUE: Digital bilateral breast kai (3D mammographic acquisition) in the CC and MLO projections. 2-D mediolateral oblique (MLO) and craniocaudad (CC) views of both breasts were obtained. CAD: Full Field Digital Mammography with Computer Added Detection was performed. COMPARISON: Comparison is made with prior examination 07/08/2020 and 06/20/2017. FINDINGS: Breast Composition: There are scattered areas of fibroglandular density. There are no dominant masses or suspicious calcifications. No other significant abnormalities are identified. There has been no significant change since the prior study. BI/SCRN MAMM (CAD)W/KAI BILAT IMPRESSION: Stable bilateral screening mammogram. Yearly follow-up mammogram recommended. (A) ASSESSMENT CATEGORY: BIRADS Category 1: Negative. A letter regarding these results will be sent to the patient by the facility within 30 days. Approximately 10% of breast cancers are not detected by mammography. A normal mammogram should not delay biopsy of a clinically suspicious abnormality. [id number] Electronically Signed: Tima Ortiz MD at 14:22 EDT , Service support ,
== END ==
PROVIDERS: PCP Family Medicine; Referring Provider Obstetrics & Gynecology; Visit Provider Obstetrics & Gynecology
DX: Z12.31 Encounter for screening mammogram for malignant neoplasm of breast (principal)
CPT/HCPCS: 77063; 77067

== ENCOUNTER → 2022-08-14 | Outpatient (CLI) | payer MEDICAID, SELFPAY ==
--- NOTE | 2022-08-14 12:19 | BI_ITS ---
MAMMOGRAPHY - BILATERAL SCREENING REASON FOR EXAM: Female, 37 years old. Routine annual screening examination. PERTINENT HISTORY: Mother with breast cancer. Aunt with breast cancer. TECHNIQUE: Digital bilateral breast kai (3D mammographic acquisition) in the CC and MLO projections. 2-D mediolateral oblique (MLO) and craniocaudad (CC) views of both breasts were obtained. CAD: Full Field Digital Mammography with Computer Added Detection was performed. COMPARISON: Comparison is made with prior study dated 08/11/2021 and 07/08/2020. FINDINGS: Breast Composition: There are scattered areas of fibroglandular density. There are no dominant masses or suspicious calcifications. No other significant abnormalities are identified. There has been no significant change since the prior study. BI/SCRN MAMM (CAD)W/KAI BILAT IMPRESSION: Stable bilateral screening mammogram. Yearly follow-up mammogram recommended. (A) ASSESSMENT CATEGORY: BIRADS Category 1: Negative. A letter regarding these results will be sent to the patient by the facility within 30 days. Approximately 10% of breast cancers are not detected by mammography. A normal mammogram should not delay biopsy of a clinically suspicious abnormality. [id number] Electronically Signed: Tima Ortiz MD at 13:40 EDT ,
== END | disposition home or self-care (01) ==
LOC: OPBI 12:17
PROVIDERS: PCP Family Medicine; Visit Provider Obstetrics & Gynecology
DX: Z12.31 Encounter for screening mammogram for malignant neoplasm of breast (principal)
CPT/HCPCS: 77063; 77067

== ENCOUNTER → 2023-01-17 | Outpatient (CLI) | payer MEDICAID, SELFPAY ==
--- NOTE | 2023-01-17 12:18 | MRI_ITS ---
STUDY: BILATERAL BREAST MR WITHOUT AND WITH CONTRAST REASON FOR EXAM: Female, 37 years old. High risk genetics. Screening. TECHNIQUE: Multi-sequence multi-echo imaging of both breasts was performed with a dedicated breast coil. T1-weighted and T2-weighted images were performed before the administration of contrast. T1-weighted images were also performed after the intravenous administration of 23ml of Clariscan. COMPARISON: Prior mammograms dated July 2022, July 2021 and June 2020. FINDINGS: RIGHT BREAST: Almost entirely fatty replaced breast tissue with minimal background enhancement. No abnormal enhancing masses or areas of non-mass enhancement in the right breast. LEFT BREAST: Almost entirely fatty replaced breast tissue with minimal background enhancement. No abnormal enhancing masses or areas of non-mass enhancement in the left breast. There are no enlarged or abnormal lymph nodes. No abnormality in the visualized regions of the chest or liver. MRI/Breast Bilateral W/O and W IMPRESSION: No abnormality of the bilateral breast MRI examination with contrast. Alternating yearly mammogram and breast MRI with contrast, given the high risk genetics, is appropriate. CATEGORY: BIRADS Category 2: Benign. A letter regarding these results will be sent to the patient by the facility within 30 days. Electronically Signed: Wil Griffiths, at 15:03 EST ,
== END | disposition home or self-care (01) ==
LOC: MRI 12:18
PROVIDERS: PCP Family Medicine; Referring Provider Obstetrics & Gynecology; Visit Provider Obstetrics & Gynecology
DX: Z80.3 Family history of malignant neoplasm of breast (principal)
CPT/HCPCS: 77049; A9575; C8908

== ENCOUNTER → 2023-08-16 | Outpatient (CLI) | payer MEDICAID, SELFPAY ==
--- NOTE | 2023-08-16 08:01 | BI_ITS ---
MAMMOGRAPHY - BILATERAL SCREENING REASON FOR EXAM: Female, 38 years old. Routine annual screening examination. PERTINENT HISTORY: Mother with breast cancer. Aunt with breast cancer. TECHNIQUE: Digital bilateral breast kai (3D mammographic acquisition) in the CC and MLO projections. 2-D mediolateral oblique (MLO) and craniocaudad (CC) views of both breasts were obtained. CAD: Full Field Digital Mammography with Computer Added Detection was performed. COMPARISON: Comparison is made with prior examination of August 14, 2022 and August 11, 2021. FINDINGS: Breast Composition: There are scattered areas of fibroglandular density. There are no dominant masses or suspicious calcifications. Small fat-containing bilateral axillary lymph nodes. No other significant abnormalities are identified. There has been no significant change since the prior study. BI/SCRN MAMM (CAD)W/KAI BILAT IMPRESSION: Stable bilateral screening mammogram. Yearly follow-up mammogram recommended. (A) ASSESSMENT CATEGORY: BIRADS Category 2: Benign. A letter regarding these results will be sent to the patient by the facility within 30 days. Approximately 10% of breast cancers are not detected by mammography. A normal mammogram should not delay biopsy of a clinically suspicious abnormality. [id number] Electronically Signed: Tima Ortiz MD at 10:39 EDT ,
== END | disposition home or self-care (01) ==
LOC: OPBI 08:00
PROVIDERS: PCP Family Medicine; Referring Provider Obstetrics & Gynecology; Visit Provider Obstetrics & Gynecology
DX: Z12.31 Encounter for screening mammogram for malignant neoplasm of breast (principal)
CPT/HCPCS: 77063; 77067

== ENCOUNTER → 2023-11-06 | Outpatient (CLI) | payer MEDICAID, SELFPAY ==
[2023-11-06 12:13] LABS: Absolute Lymphocyte Count 1.94 X10^3/uL (0.83-4.51); Absolute Neutrophil Count 4.4 X10^3/uL (2.0-7.7); Basophil# 0.06 X10^3/uL; Basophil% 0.9 % (0-1); Eosinophil# 0.09 X10^3/uL; Eosinophils% 1.3 % (0-5); Hematocrit 43.1 % (37-47); Hemoglobin 13.9 g/dL (12.0-15.0); Lymphocyte # 1.94 X10^3/ul (0.83-4.51); Lymphocyte % 27.8 % (19-41); Mean Corp Hgb Conc 32.3 g/dL (32-36); Mean Corpuscular Hgb 29.4 pg (27.0-32.0); Mean Corpuscular Volume 91.3 fL (81-99); Monocyte# 0.52 X10^3/uL; Monocyte% 7.4 % (0-10); NRBC Flagged by Analyzer 0 % (0-5); Neutrophil # 4.35 X10^3/uL (2.7-7.7); Neutrophil % 62.2 % (47-70); Platelet Count 311 K/mm3 (150-450); RBC Distribution Width CV 12.1 % (11.6-14.6); RBC Distribution Width SD 40.3 fl (35.1-43.9); Red Blood Count 4.72 M/mm3 (4.2-5.4)
[2023-11-06 13:04] LABS: ALB/GLOB Ratio 0.9 RATIO (0.9-2.4); AST(SGOT) 26 U/L (15-37); Alanine Aminotransfer ALT/SGPT 32 U/L (13-56); Albumin, Serum 3.8 g/dL (3.2-5.0); Alkaline Phosphatase 87 U/L (45-117); Anion Gap 7 (5-15); BUN 13 mg/dL (7-18); BUN/Creat Ratio 18.8 RATIO (10-20); Calcium,Total 8.8 mg/dL (8.5-10.1); Chloride 107 mmol/L (98-107); Cholesterol 195 mg/dL (200); Creatinine, Serum 0.69 mg/dL (0.55-1.02); EST Glomerular Filtration Rate 101 mL/min (>60); Est Glom Filt Rate - Afr Amer 122 mL/min (>60); Globulin 4.2 g/dL (2.2-4.2); Glucose 97 mg/dL (74-106); Hemoglobin A1c 5.5 % (3.8-5.6); High Density Lipoprotein 47 mg/dL; Potassium 4.5 mmol/L (3.5-5.1); Sodium Level 139 mmol/L (136-145); Thyroid Stim Hormone (TSH) 1.16 uIU/mL (0.358-3.74); Triglycerides 238 mg/dL; Very Low Density Lipoprotein 48 mg/dL (5-40)
== END | disposition home or self-care (01) ==
LOC: BIMLAB 09:17
PROVIDERS: PCP Internal Medicine; Referring Provider Internal Medicine; Visit Provider Internal Medicine
DX: Z13.6 Encounter for screening for cardiovascular disorders (principal); E66.01 Morbid (severe) obesity due to excess calories; Z68.41 Body mass index [BMI] 40.0-44.9, adult; K21.9 Gastro-esophageal reflux disease without esophagitis; Z13.1 Encounter for screening for diabetes mellitus
CPT/HCPCS: 36415; 80053; 80061; 83036; 84443; 85025

== ENCOUNTER → 2024-04-04 | Outpatient (CLI) | payer MEDICAID, SELFPAY ==
--- NOTE | 2024-04-04 11:03 | MRI_ITS ---
STUDY: BILATERAL BREAST MR WITHOUT AND WITH CONTRAST REASON FOR EXAM: Female, 39 years old. High risk genetics. Alternating MRI Breast an mammography. TECHNIQUE: Multi-sequence multi-echo imaging of both breasts was performed with a dedicated breast coil. T1-weighted and T2-weighted images were performed before the administration of contrast. T1-weighted images were also performed after the intravenous administration of 23 mL of Clariscan contrast. COMPARISON: Prior breast MRI with contrast dated January 17, 2023 and prior bilateral mammogram dated August 14, 2022 FINDINGS: RIGHT BREAST: Predominantly fatty replaced breast tissue with minimal background enhancement. No abnormal enhancing masses or areas of non-mass enhancement in the right breast. LEFT BREAST: Fatty replaced breast tissue with minimal background enhancement. No abnormal enhancing masses or areas of non-mass enhancement in the left breast. No enlarged or abnormal lymph nodes. No abnormality in the visualized regions of the chest or liver. MRI/Breast Bilateral W/O and W IMPRESSION: No abnormality on the bilateral breast MRI with contrast. Given the high risk genetics, alternating mammography and breast MRI with contrast is recommended from an imaging standpoint. CATEGORY: BIRADS Category 1: Negative. A letter regarding these results will be sent to the patient by the facility within 30 days. Electronically Signed: Wil Griffiths MD at 9:12 EDT ,
== END | disposition home or self-care (01) ==
LOC: MRI 10:57
PROVIDERS: PCP Internal Medicine; Referring Provider Obstetrics & Gynecology; Visit Provider Obstetrics & Gynecology
DX: Z80.3 Family history of malignant neoplasm of breast (principal)
CPT/HCPCS: 77049; A9575; A4216; C8908

== ENCOUNTER → 2024-09-05 | Outpatient (CLI) | payer MEDICAID, SELFPAY ==
--- NOTE | 2024-09-05 09:51 | BI_ITS ---
MAMMOGRAPHY - BILATERAL SCREENING REASON FOR EXAM: Female, 39 years old. Routine annual screening examination. PERTINENT HISTORY: Mother with breast cancer. Aunt with breast cancer. TECHNIQUE: Digital bilateral breast kai (3D mammographic acquisition) in the CC and MLO projections. 2-D mediolateral oblique (MLO) and craniocaudad (CC) views of both breasts were obtained. CAD: Full Field Digital Mammography with Computer Added Detection was performed. COMPARISON: Comparison is made with prior study August 16, 2023 and August 14, 2022. FINDINGS: Breast Composition: There are scattered areas of fibroglandular density. There are no dominant masses or suspicious calcifications. No other significant abnormalities are identified. There has been no significant change since the prior study. BI/SCRN MAMM (CAD)W/KAI BILAT IMPRESSION: Stable bilateral screening mammogram. Yearly follow-up mammogram recommended. (A) ASSESSMENT CATEGORY: BIRADS Category 1: Negative. A letter regarding these results will be sent to the patient by the facility within 30 days. Approximately 10% of breast cancers are not detected by mammography. A normal mammogram should not delay biopsy of a clinically suspicious abnormality. [id number] Electronically Signed: Tima Ortiz MD at 9:35 EDT ,
== END | disposition home or self-care (01) ==
LOC: OPBI 09:50
PROVIDERS: PCP Internal Medicine; Referring Provider Obstetrics & Gynecology; Visit Provider Obstetrics & Gynecology
DX: Z12.31 Encounter for screening mammogram for malignant neoplasm of breast (principal)
CPT/HCPCS: 77063; 77067

== ENCOUNTER → 2024-10-03 | Outpatient (CLI) | payer MEDICAID, SELFPAY ==
--- NOTE | 2024-10-03 09:01 | RAD_ITS ---
STUDY: X-RAY - LEFT SHOULDER REASON FOR EXAM: Female, 39 years old. Chronic pain. TECHNIQUE: 4 views of the left shoulder. COMPARISON: None. FINDINGS: Normal glenohumeral articulation. There is mild hypertrophic acromioclavicular arthrosis. Normal acromion. Normal humeral head and visualized proximal humerus. The soft tissue structures are unremarkable. There is no demonstrated fracture. Normal visualized pulmonary apex. RAD/Shoulder min 2 Views IMPRESSION: Mild hypertrophic acromioclavicular arthrosis. No demonstrated fracture. Electronically Signed: Johnny Plasencia MD at 15:33 EST ,
[2024-10-03 12:35] LABS: Absolute Lymphocyte Count 2.02 X10^3/uL (0.83-4.51); Absolute Neutrophil Count 4.1 X10^3/uL (2.0-7.7); Basophil# 0.07 X10^3/uL; Eosinophil# 0.14 X10^3/uL; Hematocrit 40.8 % (37-47); Hemoglobin 13.3 g/dL (12.0-15.0); Lymphocyte # 2.02 X10^3/ul (0.83-4.51); Lymphocyte % 29.5 % (19-41); Mean Corp Hgb Conc 32.6 g/dL (32-36); Mean Corpuscular Hgb 30.1 pg (27.0-32.0); Mean Corpuscular Volume 92.3 fL (81-99); Mean Platelet Vol. 10.7 fl (6.2-12.0); Monocyte# 0.51 X10^3/uL; Monocyte% 7.5 % (0-10); NRBC Flagged by Analyzer 0 % (0-5); Neutrophil # 4.08 X10^3/uL (2.7-7.7); Neutrophil % 59.7 % (47-70); Platelet Count 259 K/mm3 (150-450); RBC Distribution Width CV 12.9 % (11.6-14.6); RBC Distribution Width SD 43.9 fl (35.1-43.9); Red Blood Count 4.42 M/mm3 (4.2-5.4); White Blood Count 6.8 K/mm3 (4.4-11.0)
[2024-10-03 12:38] LABS: ALB/GLOB Ratio 0.9 RATIO (0.9-2.4); AST(SGOT) 36 U/L (15-37); Alanine Aminotransfer ALT/SGPT 28 U/L (13-56); Albumin, Serum 3.4 g/dL (3.2-5.0); Alkaline Phosphatase 92 U/L (45-117); Anion Gap 4 (5-15); BUN 12 mg/dL (7-18); BUN/Creat Ratio 18.1 RATIO (10-20); Calcium,Total 8.7 mg/dL (8.5-10.1); Chloride 109 mmol/L (98-107); Cholesterol 190 mg/dL (200); Creatinine, Serum 0.66 mg/dL (0.55-1.02); EST Glomerular Filtration Rate 105 mL/min (>60); Est Glom Filt Rate - Afr Amer 127 mL/min (>60); Globulin 3.9 g/dL (2.2-4.2); Glucose 103 mg/dL (74-106); High Density Lipoprotein 50 mg/dL; Potassium 4.2 mmol/L (3.5-5.1); Protein, Total 7.3 g/dL (6.4-8.2); Sodium Level 138 mmol/L (136-145); Triglycerides 156 mg/dL; Very Low Density Lipoprotein 31 mg/dL (5-40)
== END | disposition home or self-care (01) ==
PROVIDERS: PCP Internal Medicine; Referring Provider Internal Medicine; Visit Provider Internal Medicine
DX: M25.512 Pain in left shoulder (principal); G89.29 Other chronic pain; F51.04 Psychophysiologic insomnia; I10 Essential (primary) hypertension; K21.9 Gastro-esophageal reflux disease without esophagitis
CPT/HCPCS: 36415; 73030; 80053; 80061; 85025

== ENCOUNTER → 2025-01-05 | Outpatient (CLI) | payer MEDICAID, SELFPAY ==
--- NOTE | 2025-01-05 10:00 | MRI_ITS ---
PROCEDURE: MRI left shoulder without IV contrast REASON FOR EXAM: Chronic pain TECHNIQUE: Multisequence multiplanar MR images of the left shoulder were obtained without the administration of intravenous contrast. COMPARISON: None FINDINGS 50% partial-thickness intrasubstance tear of the supraspinatus tendon at its insertion measuring up to 11 mm in width. Infraspinatus, subscapularis and teres minor tendons are intact. No significant rotator cuff muscle atrophy or edema. Intact long head biceps tendon. Glenohumeral alignment is maintained. No significant joint effusion. No discrete labral tear or paralabral cysts. No focal chondral defects. Mild acromioclavicular joint osteoarthritis including a small joint effusion and small marginal osteophytes as well as degenerative subcortical cysts. Negative for acute fracture or marrow replacing process. No significant fluid in the subacromial/subdeltoid bursa. MRI/Upper Ext Joint Only(Routine) IMPRESSION: 1. Partial-thickness partial width intrasubstance tear at the supraspinatus ins ertion as above. 2. Mild acromioclavicular joint osteoarthritis. Reading Location: [id number]
== END | disposition home or self-care (01) ==
PROVIDERS: PCP Internal Medicine; Referring Provider Internal Medicine; Visit Provider Internal Medicine
DX: G89.29 Other chronic pain (principal); M25.512 Pain in left shoulder
CPT/HCPCS: 73221

== ENCOUNTER → 2025-02-16 | Outpatient (CLI) | payer MEDICAID, SELFPAY | END | disposition home or self-care (01) | LOC: SL 15:08 | PROVIDERS: PCP Internal Medicine; Referring Provider Internal Medicine; Visit Provider Internal Medicine | DX: G47.10 Hypersomnia, unspecified (principal) | CPT/HCPCS: 95806 ==

== ENCOUNTER 2025-02-27 07:39 | Day surgery (SDC) | payer MEDICAID, SELFPAY ==
[2025-02-27] VITALS (8 sets, daily range): BP systolic 138–168; BP diastolic 88–108; PULSE 81–109; RESP 16; TEMP 36.2–36.9; O2SAT 95–97; BMI 43.2
--- NOTE | 2025-02-27 07:53 | PCM.HP.STD ---
HPI - General HPI Narrative FAM BIRD, is a 39 F who presents for left shoulder arthroscopy subacromial decompression rotator cuff repair. No changes to history and physical exam. Risks alternatives benefits discussed postoperative instructions and narcotic counseling given. Patient understands left shoulder marked no further questions or concerns okay to proceed. MR#: [id number] Acct: [id number] Name: FAM BIRD Rep #: [id number] : 1985 Provider: Dr. Horacio Fragoso MD Age/Sex: 39/F [place] [facility] [place] Status: Signed Intake Vital Signs 12/26/2508:56 01/12/2508:57 Height 5 ft 6 in 5 ft 6 in Weight: 267 lb 268 lb 4 oz BMI 43.0 43.2 BP 147/93 H Intake Visit Reasons: LEFT SHOULDER Chief Complaint: Left shoulder pain Accompanied by: Self Is patient in pain?: Yes Pain scale (1-10): 3 Allergies codeine Adverse Reaction (Verified 01/12/25 08:57) Vomitinghydrocodone (From Vicodin) Adverse Reaction (Verified 01/12/25 08:57) Vomiting Medications ?Medication ?Instructions ?Recorded ?Confirmed ?Type acetaminophen 325 mg capsule 325 mg PO ONCE PRN 08/19/20 01/12/25 History (Tylenol) lisinopril 10 mg tablet 10 mg PO QDAY #90 tabs 11/06/24 01/12/25 Rx mirtazapine 15 mg tablet (Remeron) 15 mg PO QHS #90 tabs 11/06/24 01/12/25 Rx omeprazole 20 mg capsule,delayed 20 mg PO DAILY #90 caps 11/06/24 01/12/25 Rx release PFSH Medical History (Updated 01/12/25 @ 09:17 by Horacio Fragoso MD) Impingement of left shoulder Left rotator cuff tear Left shoulder pain Family history of breast cancer in mother Surgical History H/O cystoscopy (~08/03/20) H/O bilateral salpingectomy (~08/03/20) History of LAVH (~08/03/20) History of tubal ligation History of eye surgery History of tonsillectomy History of knee surgery History of Family History Mother Breast cancer Uterine cancer Lung cancer Ovarian cancer genetic susceptibility Dysplasia of cervix Diabetes Multiple sclerosisFather HypertensionGrandmother Diabetes Hypertension Heart diseaseGrandfather DiabetesAunt Breast cancer Social History household members: spouse and children housing: house number of children: 5 current occupational status: employed 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 Horacio Fragoso MD 01/12/25 0883. Part of today?s visit was documented by [ ], acting as scribe. FAM BIRD is a 39 year old F here today for left shoulder pain. This has now been going on for 2 or 3 years. The pain is located anteriorly. There was no fall. It goes down the arm it is worse at night worse with lifting the pain is a 2 or 3 out of 10 at rest and sometimes up to an 8 or 9. 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 The patient tried over 6 weeks of physical therapy as well as home-based exercises this is did not help at all. The patient is not interested in a cortisone injection or other therapies. Patient is right-hand dominant. Ortho Exam General General: Yes no acute distress Neurologic: Yes alert and Yes oriented x3 Psychologic: Yes reasonable and appropriate Left Shoulder Skin/Wound: Yes CDI, No ecchymosis, No erythema and No swelling Testing: Yes Hawkin's, Yes Neer's, No Speed's, No TTP Biceps, No TTP AC Joint, Yes AROM-Forward Elevation 0-180, Yes AROM-External Rotation at side 0-60, Yes empty can, No Bolivar, No scapular winging and Yes belly press normal SHOULDER: normal motor and sens to axillary N, MRU and AIN/PIN. Hand warm well perfused normal radial pulse Forward elevation and external rotation strength 5/5 but painful arc sign. Supplemental Info [facility] Imaging Services [address] [place], [place] [id number] Shoulder min 2 Views MR#: [id number] Acct: [id number] Name: FAM BIRD Rep #: [id number] : 1985 F 39 From: Johnny Plasencia MD PCP: Dr. Bárbara Lindsay MD Status: REG CLI Study: Shoulder min 2 Views Date of Exam: 10/03/24 Exam# [id number] Ordering Dr: Bárbara Lindsay MD STUDY: X-RAY - LEFT SHOULDER REASON FOR EXAM: Female, 39 years old. Chronic pain. TECHNIQUE: 4 views of the left shoulder. COMPARISON: None. FINDINGS: Normal glenohumeral articulation. There is mild hypertrophic acromioclavicular arthrosis. Normal acromion. Normal humeral head and visualized proximal humerus. The soft tissue structures are unremarkable. There is no demonstrated fracture. Normal visualized pulmonary apex. RAD/Shoulder min 2 Views IMPRESSION: Mild hypertrophic acromioclavicular arthrosis. No demonstrated fracture. Electronically Signed: Johnny Plasencia MD at 15:33 EST Reading Location ID and State: [facility] / [place] , Service support , [facility] Imaging Services [address] [place] [id number] Upper Ext Joint Only(Routine) MR#: [id number] Acct: [id number] Name: FAM BIRD Rep #: [id number] : 1985 F 39 From: Mario Zamora DO PCP: Dr. Bárbara Lindsay MD Status: REG CLI Study: Upper Ext Joint Only(Routine) Date of Exam: 01/05/25 Exam# [id number] Ordering Dr: Bárbara Lindsay MD PROCEDURE: MRI left shoulder without IV contrast REASON FOR EXAM: Chronic pain TECHNIQUE: Multisequence multiplanar MR images of the left shoulder were obtained without the administration of intravenous contrast. COMPARISON: None FINDINGS 50% partial-thickness intrasubstance tear of the supraspinatus tendon at its insertion measuring up to 11 mm in width. Infraspinatus, subscapularis and teres minor tendons are intact. No significant rotator cuff muscle atrophy or edema. Intact long head biceps tendon. Glenohumeral alignment is maintained. No significant joint effusion. No discrete labral tear or paralabral cysts. No focal chondral defects. Mild acromioclavicular joint osteoarthritis including a small joint effusion and small marginal osteophytes as well as degenerative subcortical cysts. Negative for acute fracture or marrow replacing process. No significant fluid in the subacromial/subdeltoid bursa. MRI/Upper Ext Joint Only(Routine) IMPRESSION: 1. Partial-thickness partial width intrasubstance tear at the supraspinatus insertion as above. 2. Mild acromioclavicular joint osteoarthritis. [facility] independently reviewed the imaging. Concur with radiologist report. Coding Level of Care Code Off vis,new,level 3 Diagnoses Left shoulder pain M25.512 Left rotator cuff tear M75.102 Impingement of left shoulder M25.812 Assessment and Plan Assessment and Plan (1) Left shoulder pain: Status: Acute Plan: FAM BIRD is a 39 year old F here today for left shoulder pain. Patient has a 50% partial-thickness tear of the supraspinatus tendon as well as ongoing pain that is failed conservative management including over 6 weeks of physical therapy. We explained the pros and cons risks and benefits of continued nonoperative management versus surgery. The patient would like to go ahead with surgical management in the form of left shoulder arthroscopy subacromial decompression rotator cuff repair. Explained the recovery associate with that 2 to 3 weeks in a sling 6 weeks of range of motion exercises followed by 6 weeks of strengthening typical return to normal activities 3 to 6 months after surgery. Patient understands and wishes to go ahead with the operation. Pros and cons risks and benefits were discussed with the patient including but not limited to infection, pain, stiffness, bleeding, damage to surrounding structures, neurovascular injury, recurrence or retear, failure or wear of hardware or fixation, instability, fracture, deep vein thrombosis and pulmonary embolism, anesthetic risks, , patient dissatisfaction, need for further surgery and other risks. Patient understood and wished to proceed with surgery, and signed the informed consent documentation. Patient counselled on non-operative and operative means of treating shoulder pain. Conservative options include but not limited to: 1. Rest and Activity Modification: Giving your shoulder time to heal by avoiding movements that cause pain can help. This may involve limiting overhead activities or heavy lifting. 2. Physical Therapy: A physical therapist can guide you through exercises that strengthen the muscles around the shoulder, improve flexibility, and reduce strain on the rotator cuff tendon. 3. Ice and Heat Therapy: Applying ice to the shoulder can help reduce swelling and pain, especially after activity. Heat can be helpful to relax tense muscles and improve blood flow before exercises. 4. Anti-Inflammatory Medications: Xmze-arf-[id number] medications like ibuprofen or naproxen can help reduce pain and inflammation in the tendon. 5. Corticosteroid Injections: If the pain is more severe, a steroid injection can reduce inflammation in the shoulder and provide relief for a longer period. 6. Platelet-Rich Plasma (PRP) Injection: This treatment involves using your own blood to promote healing in the tendon. The plasma is rich in growth factors that can encourage tissue repair. 7. TENS (Transcutaneous Electrical Nerve Stimulation): This therapy uses a small electrical current to help manage pain and promote healing by stimulating nerves. (2) Left rotator cuff tear: Status: Acute (3) Impingement of left shoulder: Status: Acute [facility] Medical History (Updated 02/13/25 @ 08:58 by Princess Theodore) Wears glasses Depression High cholesterol Migraine headache Gastric reflux Asthma Non-smoker Impingement of left shoulder Left rotator cuff tear Left shoulder pain Family history of breast cancer in mother Home Medications ?Medication ?Instructions ?Recorded ?Last Taken ?Type acetaminophen 325 mg capsule 325 mg PO ONCE PRN pain 08/19/20 Unknown History (Tylenol) mirtazapine 15 mg tablet (Remeron) 15 mg PO QHS #90 tabs 11/06/24 Unknown Rx omeprazole 20 mg capsule,delayed 20 mg PO DAILY #90 caps 11/06/24 Unknown Rx release ibuprofen 200 mg tablet 200 mg PO Q6H PRN pain 02/05/25 Unknown History lisinopril 20 mg tablet 20 mg PO QDAY #90 tabs 02/12/25 Unknown Rx Allergy/AdvReac Type Severity Reaction Status Date / Time codeine AdvReac Vomiting Verified 02/13/25 08:47 hydrocodone (From Vicodin) AdvReac Vomiting Verified 02/13/25 08:47 Family History Mother Breast cancer Uterine cancer Lung cancer Ovarian cancer genetic susceptibility Dysplasia of cervix Diabetes Multiple sclerosis Father Hypertension Grandmother Diabetes Hypertension Heart disease Grandfather Diabetes Aunt Breast cancer Surgical History (Updated 02/13/25 @ 08:58 by Princess Theodore) History of tonsillectomy and adenoidectomy H/O cystoscopy (~08/03/20) H/O bilateral salpingectomy (~08/03/20) History of LAVH (~08/03/20) History of tubal ligation History of eye surgery History of knee surgery History of Social History household members: spouse and children housing: house number of children: 5 current occupational status: employed 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
--- NOTE | 2025-02-27 08:06 | PRE.ANES_ITS ---
ASA Classification* ASA Classification ASA Classification: 3 Assessment & Plan Anesthesia* Anesthesia Assessment Anesthesia Assessment: Discussed sedation and/or anesthesia options, risks, benefits, and alternatives with patient/parents/legal guardian/POA. Questions invited. The patient/parents/legal guardian/POA seems to understand and agrees to proceed with anesthesia plan. Reviewed the physical assessment, medical history, allergy history and patient home medications list prior to surgery/procedure/anesthetic and documented any changes. Performed airway and anesthesia risk assessments. Anesthesia Type Anesthesia Type: General Anesthesia Focused Assessment* Airway Assessment Mouth opens: >3 cm Mallampati Score: II Focused Labs Anesthesia Preop lab: CBC WBC 6.8 K/mm3 (4.4-11.0) 10/03/24 08:19 10/03/24 RBC 4.42 M/mm3 (4.2-5.4) 10/03/24 08:19 10/03/24 Hgb 13.3 g/dL (12.0-15.0) 10/03/24 08:19 10/03/24 Hct 40.8 % (37-47) 10/03/24 08:19 10/03/24 Plt Count 259 K/mm3 (150-450) 10/03/24 08:19 10/03/24 CHEMISTRY Potassium 4.2 mmol/L (3.5-5.1) 10/03/24 08:19 10/03/24 Sodium 138 mmol/L (136-145) 10/03/24 08:19 10/03/24 Magnesium 2.2 mg/dL (1.6-2.6) 07/27/20 14:35 07/27/20 BUN 12 mg/dL (7-18) 10/03/24 08:19 10/03/24 Creatinine 0.66 mg/dL (0.55-1.02) 10/03/24 08:19 10/03/24 Glucose 103 mg/dL (74-106) 10/03/24 08:19 10/03/24 POC Glucose 90 mg/dL (70-110) 08/03/20 06:13 08/03/20 TSH 1.16 uIU/mL (0.358-3.74) 11/06/23 09:18 COAG PT 13.6 SECONDS (11.7-14.9) 01/13/19 05:40 Pre-Assessment Diagnosis/Proposed Procedure Planned Operative Procedure(s): LEFT SHOULDER ARTHROSCOPY SUBCROMIAL DECOMPRESSION RTC REPAIR Anesthesia History 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 When Was Last Pacemaker Check QUESTION #4 FULL TEXT: You/Your Family Experience fever (hyperthermia) with Anesthesia Last Oral Intake Last Oral intake: Last Oral Intake NPO since Meds taken in AM with sips of water? Meds patient instructed to take am of surgery PONV PONV - corporate wellness coordinator: PONV - corporate wellness coordinator Female Yes 02/13/25 08:49 HX of Motion Sickness No 02/13/25 08:49 HX of N/V After Surgery No 02/13/25 08:49 Non-Smoker Yes 02/13/25 08:49 Duration of Surgery greater Yes 02/13/25 08:49 than 60 minutes Number of Risk Factors 3 02/13/25 08:49 PONV Score Moderate Risk 02/13/25 08:49 Height & Weight Height & Weight: Anesthesia: Height & Weight Height 5 ft 6 in 02/26/25 09:47 Weight: 121.563 kg 02/26/25 09:47 Respiratory Assessment Respiratory Assessment - corporate wellness coordinator: Respiratory Tract Infection Hx - corporate wellness coordinator Hx Respiratory Tract Infection No 02/13/25 08:49 STOP Sleep Apnea STOP Sleep Apnea - corporate wellness coordinator: STOP Sleep Apnea - corporate wellness coordinator Hx Hypertension Yes: CONTROLLED WITH MED 02/13/25 08:49 Hx Sleep Apnea No 02/13/25 08:49 CPAP BIPAP Do you snore loudly (louder No 02/13/25 08:49 than talking or can be heard Do you often feel tired/ No 02/13/25 08:49 fatigued/ sleepy during daytime? Has anyone observed you stop No 02/13/25 08:49 breathing during sleep? STOP Results Negative 02/13/25 08:49 QUESTION #5 FULL TEXT : Do you snore loudly (louder than talking or can be heard through closed doors)? 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 Specify any problems Hx of Preganancy in last 3 No 02/13/25 08:49 Months Nurse Filling Out Transfusion DSCHRIBER 02/13/25 08:49 & Questions: Date: 02/13/25 02/13/25 08:49 Time: 08:50 02/13/25 08:49 Patient unable to answer at this time (ie. confused, unrespo /Reproduction History /Reproductive History - corporate wellness coordinator: /Reproductive Hx- corporate wellness coordinator Hx Now No 02/13/25 08:49 Gestational Age (in weeks): EDC: Hx Hx Para Hx Section SAB No 02/13/25 08:49 Active Medications Active Medications: Current Medications Generic Name Dose Route Start Last Admin Trade Name Freq PRN Reason Stop Dose Admin Cefazolin Sodium 3 gm/ N/A 30 mls @ 600 mls/hr 02/27/25 09:50 IV 02/27/25 09:52 X1 ONE Sodium Chloride 1,000 mls @ 15 mls/hr 02/27/25 07:50 IV .Q48H CINTIA PFSH Medical History Wears glasses Depression High cholesterol Migraine headache Gastric reflux Asthma Non-smoker Impingement of left shoulder Left rotator cuff tear Left shoulder pain Family history of breast cancer in mother Home Medications ?Medication ?Instructions ?Recorded ?Last Taken ?Type acetaminophen 325 mg capsule 325 mg PO ONCE PRN pain 1 Unknown History (Tylenol) mirtazapine 15 mg tablet (Remeron) 15 mg PO QHS #90 ta bs 11/06/24 Unknown Rx omeprazole 20 mg capsule,delayed 20 mg PO DAILY #90 ca ps 11/06/24 Unknown Rx release ibuprofen 200 mg tablet 200 mg PO Q6H PRN pain 02/05 Unknown History lisinopril 20 mg tablet 20 mg PO QDAY #90 tabs 02/12 Unknown Rx Allergy/AdvReac Type Severity Reaction Status Date / Time codeine AdvReac Vomiting Verified 02/13/25 08:47 hydrocodone (From Vicodin) AdvReac Vomiting Verified 02/13/25 08:47 Family History Mother Breast cancer Uterine cancer Lung cancer Ovarian cancer genetic susceptibility Dysplasia of cervix Diabetes Multiple sclerosis Father Hypertension Grandmother Diabetes Hypertension Heart disease Grandfather Diabetes Aunt Breast cancer Surgical History History of tonsillectomy and adenoidectomy H/O cystoscopy (~08/03/20) H/O bilateral salpingectomy (~08/03/20) History of LAVH (~08/03/20) History of tubal ligation History of eye surgery History of knee surgery History of Social History household members: spouse and children housing: house number of children: 5 current occupational status: employed 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
[2025-02-27] MEDS: Cefazolin 3 GM in Syringe IV (10:08)
[2025-02-27] MEDS: Epinephrine (1 mg/ml) 1 MG/ML VIAL (10:08)
--- NOTE | 2025-02-27 10:43 | PCM.OPRPT ---
Problems Associated Problem List Diagnoses (1) Impingement of left shoulder: (2) Left rotator cuff tear: (3) Left shoulder pain: Procedures Musculoskeletal 20xxx-29xxx: Other Procedure See Report Operative Report (Standard) Operative Information Date of Procedure: 02/27/25 Pre-Operative Diagnosis: Left shoulder impingement syndrome and rotator cuff tear Post-Operative Diagnosis: Same Surgery/Procedure Performed: Left shoulder arthroscopy subacromial decompression rotator cuff repair structural draftsman: Yes Employee Benefits Manager: arpita Tasks completed by fire assistant: Retracting Type of Anesthesia: Block,Regional and General RN Documented Start/Stop Times: Operation Date: 02/27/25 09:50 Case Time Into Pre-Op 02/27/25 07:46 Anesthesia Start 02/27/25 09:53 Into Room 02/27/25 09:53 Procedure Start 02/27/25 10:16 Procedure Start Time: 10:16 Procedure Stop Time: 10:48 Select all DRAINS/GRAFTS/IMPLANTS that apply: Implanted device Implanted device details: Arthrex all suture knotless anchor x 2 and 4.75 mm swivel lock Estimated Blood Loss: 50 Specimen collected: No Description of surgery: Patient brought the operating room theater. Placed supine on the table. 3 g IV Ancef administered prior to the start of the case. General anesthesia induced. All bony prominences padded. SCDs on the legs. Patient transferred left side up lateral decubitus beanbag positioner axillary roll used. Upper extremity prepped and draped in the usual sterile fashion allowing over 3 minutes drying time prior to draping. Used at 10 pounds of inline traction with the arm in 40 degrees of abduction. Preoperative timeout performed to confirm the site patient and the surgery. Began by making a standard posterior arthroscopy portal. Inserted the arthroscope into the intra-articular portion of the shoulder and a full diagnostic arthroscopy. Cartilage on the glenoid and humeral head was normal. Labrum slight amount of fraying. Used a spinal needle inside out localized portal through the rotator interval anteriorly. Biceps long head tendon appeared normal normal attachment site. Axillary pouch was normal no loose bodies. The subscapularis tendon appeared normal no tears. The undersurface of the rotator cuff tendon appeared normal as the tear was partial-thickness partial width at the surface of the tendon so-called 'kalani' type tear. This was in the mid aspect of the tendon per the MRI. I then inserted the arthroscope in the subacromial space. There is a high amount of inflammatory bursitis and inflammation of the tendon. I performed a complete bursectomy. I did a subacromial decompression for slight downsloping of the anterolateral acromion using high-speed ryann I took arthroscopy pictures throughout and saved them onto the system. Identified the tear site for 3 mm.. I used a Arthrex all suture knotless anchors to create medial mile. I placed 1 anchor just anteriorly and 1 and anchor just posteriorly to the tear site. I set the anchors. I converted the opposite repair suture to create 2 repair sutures from anterior to posterior. I then used the 2 suture limbs and brought this to a third Arthrex swivel lock 4.75 mm anchor just laterally to create a triangular shape configuration to repair the tear. Sutures cut short final arthroscopy pictures taken and saved onto the system. Hemostasis achieved wound sterilely cleaned wet-to-dry dressings. Subcutaneous tissue closed with 3-0 Monocryl sutures and Steri-Strips. Adaptic 4 x 4 gauze ABD dressing cloth tape with an abduction pillow sling is in place for the upper extremity. Patient woken up from the general anesthetic transferred off the operating table taken to postanesthetic care unit in stable condition. All sponge needle instrument counts were correct no complications plan to the patient gentle pendulum exercises hand wrist and elbow exercises as tolerated follow-up in the office within 2 weeks time. CPT 97749, 35379? Surgical Findings: As above Complications Complications: No Admit VTE Documentation VTE Present on Admission: No VTE Mechan Device Prophylaxis: SCD's VTE Pharm Prophylaxis ordered?: No Reason prophylaxis not ordered: Treatment Not Indicated
--- NOTE | 2025-02-27 10:50 | DCINST_ITS ---
Discharge Instructions Diet Discharge Diet: No restrictions Activity Lifting Restrictions: no lifting over 1 pound, ok for pendulums 4x/day Additional Activity Instructions:: can remove sling at rest. ok for hand wrist elbow ROM. Dressing / Incision Call your doctor if your incision/area has: Continuous Slow Oozing, Sudden Increased Bleeding, Increased Pain/ Swelling, Increased Redness, Foul Smelling Discharge and Swelling at the incision site Call your doctor if you observe: Fever of 101 or Higher, Coldness, Increased Pain and Numbness or Tingling Change Dressing in: 1 day Cleanse incision/area with: Do not get Incision Wet Additional Dressing/Incision Instructions:: keep incisions covered. Follow Up Care Please Follow Up With: Horacio Fragoso MD When: within 2 weeks. Test Results: Test results from this visit will be discussed in further detail at your follow- up appointment, if applicable. Discharge Plan Admission Attending Provider: Horacio Fragoso Primary Care Provider: Bárbara Lindsay Instructions Patient Instructions: After Shoulder Arthroscopy Print Language: Belarusian Discharge Orders/Prescriptions Prescriptions: New oxycodone-acetaminophen [Percocet] 5-325 mg tablet 1 tab PO Q4H MDD 6 PRN (Reason: pain) 4 Days Qty: 20 0RF No Action acetaminophen [Tylenol] 325 mg capsule 325 mg PO ONCE PRN (Reason: pain) mirtazapine [Remeron] 15 mg tablet 15 mg PO QHS Qty: 90 1RF omeprazole 20 mg capsule,delayed release(DR/EC) 20 mg PO DAILY Qty: 90 1RF ibuprofen 200 mg tablet 200 mg PO Q6H PRN (Reason: pain) lisinopril 20 mg tablet 20 mg PO QDAY Qty: 90 0RF Referrals / Follow Up: Bárbara Lindsay MD [Primary Care Provider] - Disposition Disposition (needs filled in before D/C Order can be placed): Home, Self Care
--- NOTE | 2025-02-27 12:04 | PCM.POST.ANE ---
Anesthesia: Postop Eval I Current Vital Signs Temperature: 97.2 F Pulse Rate: 102 Blood Pressure: 168/104 Respiratory Rate: 16 Pulse Ox: 97 Oxygen Delivery Method: Room Air Assessment Airway patent: Yes Spontaneous unlabored respirations: Yes nausea: No Vomiting: No Anesthesia Complication: No Fluid Hydration Crystalloid volume administer (ml): 500 Total IV fluid infused: 500 Progress Note Anesthesia document: Postop Eval 1 completed: Yes
--- NOTE | 2025-02-27 12:11 | PCM.POSTANE2 ---
Anesthesia Postop Eval I Sum Postop Eval Completion status Anesthesia document: Postop Eval 1 completed: Yes Anesthesia Postop Eval I Summary Anesthesia Postop Eval I Summary: Anesthesia Postop Eval I: Assessment Summary Airway patent Yes 02/27/25 12:05 Spontaneous unlabored Yes 02/27/25 12:05 respirations Mental status nausea No 02/27/25 12:05 Vomiting No 02/27/25 12:05 Anesthesia Postop Eval I: Fluid Summary Crystalloid volume administer 500 02/27/25 12:05 (ml) Colloids volume administered ( ml) Blood Product volume administered (ml) Total IV fluid infused 500 02/27/25 12:05 Anesthesia Postop Eval I: Summary Notes Anesthesia Complication No 02/27/25 12:05 Anesthesia Complication Comment: Post-operative progress note Anesthesia: Postop Eval II Evaluation Mental status: Awake Pain Level: 2 nausea: No Vomiting: No
== END 2025-02-27 12:28 | disposition home or self-care (01) ==
LOC: SDC 07:40 → AC 07:42
PROVIDERS: PCP Internal Medicine; Referring Provider Orthopaedic Surgery Sports Medicine; Visit Provider Orthopaedic Surgery Sports Medicine
PROC: (CPT 29805; principal; 2025-02-27 09:30)
DX: M75.102 Unspecified rotator cuff tear or rupture of left shoulder, not specified as traumatic (principal); K21.9 Gastro-esophageal reflux disease without esophagitis; M75.42 Impingement syndrome of left shoulder; Z79.899 Other long term (current) drug therapy; Z79.1 Long term (current) use of non-steroidal anti-inflammatories (NSAID); X58.XXXA Exposure to other specified factors, initial encounter
CPT/HCPCS: 29827; 29826; 64415; 01630; C1713; J2405